=== PATIENT | female | born 1960 | race Two or more races ===

== ENCOUNTER 2018-11-05 15:28 | Emergency (ER) | payer MEDICAID ==
[~2018-11-05] VITALS: Ht 154.9 cm; Wt 89.8 kg
[~2018-11-05 15:28] MED LIST: CIPR-273 PO; HYDR-4683 PO; RANI300T3 PO; TAM04C PO
[2018-11-05 15:52] VITALS: BP 127/71
== END 2018-11-05 17:14 | disposition home or self-care (01) ==
LOC: ER 15:38
DX: N20.0 Calculus of kidney (principal); I10 Essential (primary) hypertension; Z87.11 Personal history of peptic ulcer disease; Z90.710 Acquired absence of both cervix and uterus; Z88.0 Allergy status to penicillin; Z88.6 Allergy status to analgesic agent
CPT/HCPCS: 74176

== ENCOUNTER 2018-12-08 14:16 | Emergency (ER) | payer MEDICAID ==
[~2018-12-08] VITALS: Ht 154.9 cm; Wt 86.2 kg
[2018-12-09 10:28] VITALS: BP 123/70
== END 2018-12-09 11:19 | disposition home or self-care (01) ==
LOC: ER 14:23
DX: N39.0 Urinary tract infection, site not specified (principal); R11.2 Nausea with vomiting, unspecified; M19.90 Unspecified osteoarthritis, unspecified site; I10 Essential (primary) hypertension; Z93.6 Other artificial openings of urinary tract status; Z88.5 Allergy status to narcotic agent; Z88.0 Allergy status to penicillin; Z79.899 Other long term (current) drug therapy
CPT/HCPCS: 74176; 81002; 93005

== ENCOUNTER 2019-06-27 06:01 | Emergency (ER) | payer MEDICAID ==
[~2019-06-27] VITALS: Ht 154.9 cm; Wt 86.2 kg
[~2019-06-27 06:01] MED LIST changes: -HYDR-4683 PO; +HYDR-4833 PO
[2019-06-27 06:27] LABS: Basophils # (auto) 0.1 uL; Basophils % (auto) 0.8 % (0.0-2.0); Eosinophils # (auto) 0.2 uL; Eosinophils % (auto) 2.8 % (0.0-7.0); Hematocrit 39.7 % (36.0-46.0); Hemoglobin 13.4 g/dL (12.2-16.2); Lymphocytes % (auto) 43.4 % (10.0-50.0); Mean Corpuscular Hemoglobin 31.8 pg (28.0-32.0); Mean Corpuscular Hgb Conc. 33.9 g/dL (32.0-36.0); Monocytes # (auto) 0.6 uL; Monocytes % (auto) 8.1 % (0.0-12.0); Neutrophils # (auto) 3.1 uL; Neutrophils % (auto) 44.9 % (37.0-80.0); Nucleated Red Blood Cells % 0.1 %; Platelet Count (auto) 312 10^3/uL (140-450); Red Blood Cells 4.22 10^6/uL (4.0-5.20); Red Cell Distribution Width 12.9 % (11.8-14.3); White Blood Cell 6.9 10^3/uL (4.4-10.8)
[2019-06-27 06:30] LABS: Urine Bacteria FEW /hpf (None Seen); Urine Blood Negative /uL (Negative); Urine Mucus FEW (None Seen); Urine Specific Gravity 1.015 (1.001-1.035); Urine WBC 85 /hpf (0 - 5)
[2019-06-27 06:47] LABS: Albumin 3.9 g/dL (3.4-5.0); BUN/Creatinine Ratio 15.2; Calcium 9.5 mg/dL (8.5-10.1); Potassium 4.1 mmol/L (3.5-5.1)
[2019-06-27 06:48] LABS: Bilirubin, Total 0.4 mg/dL (0.2-1.0); Total Protein 7.5 g/dL (6.4-8.2)
[2019-06-27] MEDS ORDERED: SODIUM CHLORIDE 0.9% 1,000 ML IV ONE ×2 (08:27)
[2019-06-27] MEDS ORDERED: KETOROLAC TROMETH 15 mg/ml 1ML VL IV ONE (08:30)
[2019-06-27] MEDS ORDERED: TAMSULOSIN HYDROCHLORIDE 0.4 MG CAP PO ONE (08:30)
[2019-06-27] MEDS ORDERED: KETOROLAC TROMETH 30 MG/ML 1ML VIAL IV ONE (09:00)
[2019-06-27] MEDS ORDERED: cefTRIAXone 1GM/50ML D5W 50 ML IV ONE (10:15)
[2019-06-27 12:29] VITALS: BP 131/101
[2019-07-30] MEDS ORDERED: LISI2.5T47 PO (21:04)
[2019-07-30] MEDS ORDERED: POTA-220 PO (21:04)
[2019-07-30] MEDS ORDERED: OMEP20TA PO (21:04)
== END 2019-06-27 13:47 | disposition home or self-care (01) ==
LOC: ER 06:01
DX: N39.0 Urinary tract infection, site not specified (principal); I10 Essential (primary) hypertension; Z88.0 Allergy status to penicillin; Z88.1 Allergy status to other antibiotic agents; Z88.5 Allergy status to narcotic agent; Z79.2 Long term (current) use of antibiotics; Z79.899 Other long term (current) drug therapy
CPT/HCPCS: 36415; 71045; 74176; 80053; 81001; 84484; 85025; 94761; 96361; 96365; 96375; 99284; J0696; J1885; J7030

== ENCOUNTER 2019-11-18 18:01 | Emergency (ER) | payer MEDICAID ==
[~2019-11-18] VITALS: Ht 165.1 cm; Wt 134.3 kg
[~2019-11-18 18:01] MED LIST changes: -CIPR-273 PO; -HYDR-4833 PO; +LISI2.5T47 PO; +OMEP20TA PO; +POTA-220 PO; -RANI300T3 PO; -TAM04C PO
[2019-11-18 18:53] LABS: Basophils # (auto) 0.1 uL; Basophils % (auto) 0.5 % (0.0-2.0); Eosinophils # (auto) 0.3 uL; Eosinophils % (auto) 2.6 % (0.0-7.0); Hematocrit 40.4 % (36.0-46.0); Hemoglobin 12.9 g/dL (12.2-16.2); Lymphocytes # (auto) 2.9 uL; Lymphocytes % (auto) 27.6 % (10.0-50.0); Mean Corpuscular Hemoglobin 31.9 pg (28.0-32.0); Mean Corpuscular Hgb Conc. 31.9 g/dL (32.0-36.0); Monocytes # (auto) 0.7 uL; Neutrophils # (auto) 6.4 uL; Neutrophils % (auto) 62.3 % (37.0-80.0); Platelet Count (auto) 250 10^3/uL (140-450); Red Blood Cells 4.04 10^6/uL (4.0-5.20); Red Cell Distribution Width 15.3 % (11.8-14.3); White Blood Cell 10.3 10^3/uL (4.4-10.8)
[2019-11-18 19:10] LABS: Albumin 3.4 g/dL (3.4-5.0); Anion Gap 9 (5-15); BUN/Creatinine Ratio 24.2; Blood Urea Nitrogen 31 mg/dL (7-18); Calcium 9.2 mg/dL (8.5-10.1); Carbon Dioxide 20 mmol/L (21-32); Chloride 108 mmol/L (98-107); GFR African American 55 mL/min; GFR Non-African American 45 mL/min; Glucose 108 mg/dL (74-106); Potassium 3.7 mmol/L (3.5-5.1); Sodium 137 mmol/L (136-145)
[2019-11-18 19:13] LABS: Aspartate Aminotransferase 21 U/L (15-37); Bilirubin, Total 0.3 mg/dL (0.2-1.0); Total Protein 6.9 g/dL (6.4-8.2)
[2019-11-18 19:22] LABS: Alanine Aminotransferase 43 U/L (13-56); Alkaline Phosphatase 74 U/L (45-117)
[2019-11-18 21:01] VITALS: BP 115/81
== END 2019-11-18 21:55 | disposition home or self-care (01) ==
LOC: EDUNIT# 18:01 → ER 18:01 → EDBD 18:01 → ER 21:55
DX: E86.0 Dehydration (principal); R55 Syncope and collapse; R42 Dizziness and giddiness; I10 Essential (primary) hypertension; Z90.710 Acquired absence of both cervix and uterus; Z87.442 Personal history of urinary calculi; Z87.11 Personal history of peptic ulcer disease
CPT/HCPCS: 36415; 70450; 80053; 83735; 83880; 84484; 85025; 93005

== ENCOUNTER 2020-08-10 10:44 | Inpatient (IN) | payer MEDICAID ==
[~2020-08-10] VITALS: Ht 154.9 cm; Wt 93.3 kg
[2020-08-10] MEDS ORDERED: PANTOPRAZOLE 40 MG/10 ML VIAL INJ IV STA (10:53)
[2020-08-10] MEDS ORDERED: SODIUM CHLORIDE 0.9% 500 ML IVB ONE (11:00)
[2020-08-10] MEDS ORDERED: MORPHINE SULFATE 4 MG/ML SYR/VIAL IV ONE (11:00)
[2020-08-10] MEDS ORDERED: ONDANSETRON HCL 4 MG/2 ML VIAL IV ONE (11:00)
[2020-08-10 11:19] LABS: Basophils # (auto) 0.1 10 ^3/uL (0-0.2); Basophils % (auto) 0.8 % (0.0-2.0); Eosinophils # (auto) 0.3 10 ^3/uL (0-0.8); Eosinophils % (auto) 3.2 % (0.0-7.0); Hematocrit 36.3 % (36.0-46.0); Hemoglobin 12.2 g/dL (12.2-16.2); Lymphocytes # (auto) 2.3 10 ^3/uL (0.4-5.4); Mean Corpuscular Hemoglobin 32.9 pg (28.0-32.0); Mean Corpuscular Hgb Conc. 33.6 g/dL (32.0-36.0); Monocytes # (auto) 0.8 10 ^3/uL (0-1.3); Monocytes % (auto) 8.4 % (0.0-12.0); Neutrophils # (auto) 5.5 10 ^3/uL (1.6-8.6); Neutrophils % (auto) 61.6 % (37.0-80.0); Nucleated Red Blood Cells % 0.1 %; Platelet Count (auto) 304 10^3/uL (140-450); Red Cell Distribution Width 14.2 % (11.8-14.3); White Blood Cell 8.9 10^3/uL (4.4-10.8)
[2020-08-10 11:36] LABS: Albumin 3.6 g/dL (3.4-5.0); Amylase 59 U/L (25-115); Anion Gap 5 (5-15); Blood Urea Nitrogen 13 mg/dL (7-18); Calcium 9.2 mg/dL (8.5-10.1); Carbon Dioxide 26 mmol/L (21-32); Chloride 106 mmol/L (98-107); Glucose 121 mg/dL (74-106); Lipase 227 U/L (73-393); Potassium 3.8 mmol/L (3.5-5.1); Sodium 137 mmol/L (136-145)
[2020-08-10 11:44] LABS: Alanine Aminotransferase 94 U/L (13-56); Alkaline Phosphatase 109 U/L (45-117); Aspartate Aminotransferase 55 U/L (15-37); BUN/Creatinine Ratio 12.1; Bilirubin, Total 0.7 mg/dL (0.2-1.0); GFR African American 67 mL/min; GFR Non-African American 55 mL/min; Total Protein 7.1 g/dL (6.4-8.2)
[2020-08-10] MEDS ORDERED: metroNIDAZOLE 500MG/100ML 100 ML IV ONE (12:00)
[2020-08-10] MEDS ORDERED: NITROGLYCERIN 0.4 MG SL TAB SL PRN (12:45)
[2020-08-10] MEDS ORDERED: MORPHINE SULF INJ 2 MG/ML SYRINGE 1ML IV PRN (12:45)
[2020-08-10] MEDS ORDERED: MORPHINE SULFATE 4 MG/ML SYR/VIAL IV PRN (12:45)
[2020-08-10] MEDS ORDERED: SODIUM CHLORIDE 0.9% 1,000 ML IV SCH (12:45)
[2020-08-10] MEDS ORDERED: LABETALOL HCL 5 MG/ML 4ML SYRINGE IV PRN (12:45)
[2020-08-10] MEDS: CLINDAMYCIN 300MG IV 50 ML IV SCH ×2 (13:43→21:22)
[2020-08-10 14:31] LABS: INR 0.97 (0.9-1.15); Partial Thromboplastin Time 26.4 sec (23.0-31.2)
[2020-08-10] MEDS ORDERED: POTA-180 PO (14:38)
[2020-08-10] MEDS ORDERED: FOLI1TAB6 PO (14:38)
[2020-08-10] MEDS ORDERED: MULT-927 PO (14:38)
[2020-08-10] MEDS ORDERED: ATOR20TA50 PO (14:38)
[2020-08-10] MEDS ORDERED: OMEP-260 PO (14:38)
[2020-08-10] MEDS ORDERED: LISI-648 PO (14:38)
[2020-08-10] MEDS ORDERED: HYDR-392 PO (14:38)
[2020-08-10] MEDS ORDERED: METH2.5T PO (14:38)
[2020-08-10] MEDS ORDERED: DICL1GEL50 TD (14:38)
[2020-08-10] MEDS: SODIUM CHLORIDE 0.9% 1,000 ML IV SCH (14:45)
[2020-08-10 14:48] LABS: Urine Bacteria NONE SEEN /hpf (None Seen); Urine Blood Negative /uL (Negative); Urine Specific Gravity 1.009 (1.001-1.035); Urine WBC 1 /hpf (0 - 5)
--- NOTE | 2020-08-10 15:00 | NUR ---
MS admit from ER ALEXANDRABRAEDEN Ross admitted to tele/MS after SBAR received. Patient oriented to Bryanna carvalho RN, unit, room, bed, and unit policies regarding patient care and visiting hours. Patient weighed by bedscale and encouraged to call if they need something. All questions and concerns addressed, patient verbalized understanding.
[2020-08-10 16:32] LABS: Hematocrit 33.8 % (36.0-46.0); Hemoglobin 11.5 g/dL (12.2-16.2)
[2020-08-10 17:00] VITALS: BP 123/71
[2020-08-10] MEDS: ONDANSETRON HCL 4 MG/2 ML VIAL IV PRN (17:37)
[2020-08-10] MEDS ORDERED: ENALAPRILAT 1.25 MG/ML-1ML VIAL IV SCH (18:00)
[2020-08-10] MEDS: ENALAPRILAT 1.25 MG/ML-1ML VIAL IV SCH ×2 (18:57→23:28)
--- NOTE | 2020-08-10 18:58 | NUR ---
covid in-house swab collected. patint tolerated well. Will be sent to lab
--- NOTE | 2020-08-10 20:00 | NUR ---
ASSUMED CARE, PT. AWAKE, NO C/O PAIN, NO SOB
[2020-08-10] MEDS ORDERED: LORazepam 2MG/ML-1ML VIAL IV PRN (21:00)
[2020-08-10] MEDS: PANTOPRAZOLE 40 MG/10 ML VIAL INJ IV SCH (21:22)
[2020-08-10 22:00] VITALS: BP 147/94
--- NOTE | 2020-08-10 22:00 | NUR ---
PT. T- 100.8, BLANKET REMOVED, COOLING MEASURES APPLIED, TO KEEP MONITOR.
--- NOTE | 2020-08-10 23:29 | NUR ---
PT. T- 100.0, CONTINOUS COOLING MEASURES, TO KEEP MONITOR.
[2020-08-11] VITALS (7 sets, daily range): BP systolic 121–148; BP diastolic 65–92
[2020-08-11] MEDS: SODIUM CHLORIDE 0.9% 1,000 ML IV SCH ×3 (00:45→20:45)
[2020-08-11] MEDS: CLINDAMYCIN 300MG IV 50 ML IV SCH ×2 (05:11→14:27)
[2020-08-11] MEDS: ENALAPRILAT 1.25 MG/ML-1ML VIAL IV SCH ×3 (05:15→18:16)
--- NOTE | 2020-08-11 07:33 | NUR ---
RECEIVED PATIENT AWAKE, ALERT AND ORIENTED X4, PATIENT IS GRIMACING TO 8/10 GENERALIZED PAIN, DENIES SOB. WILL MEDICATED PER eMAR. PLAN OF CARE DISCUSSED, ENCOURAGED TO REMAIN NPO FOR EGD PROCEDURE. BED IN LOW AND LOCKED POSITION, CALL LIGHT AND PHONE WITHIN REACH WITH SIDE RAILS X2 UP. WILL CONTINUE TO MONITOR Q1HR AND PRN.
[2020-08-11] MEDS ORDERED: PANTOPRAZOLE 40 MG/10 ML VIAL INJ IV SCH (10:00)
[2020-08-11] MEDS ORDERED: ENOXAPARIN SOD 40 MG/0.4 ML SYRINGE SC SCH (10:00)
[2020-08-11] MEDS ORDERED: MIDAZOLAM HCL 5 MG/ML-1ML VIAL ONE (10:15)
[2020-08-11] MEDS ORDERED: SODIUM CHLORIDE LOCK 10 ML ONE (10:15)
[2020-08-11] MEDS ORDERED: diphenhdrAMINE HCL 50 MG/1 ML VL ONE (10:15)
[2020-08-11] MEDS ORDERED: NALOXONE HCL 0.4 MG/ML VIAL ONE (10:15)
[2020-08-11] MEDS ORDERED: LIDOCAINE VISCOUS 2% 15ML UD ONE (10:15)
[2020-08-11] MEDS ORDERED: fentaNYL CITRATE 100 MCG/2 ML VL ONE (10:16)
--- NOTE | 2020-08-11 10:27 | NUR ---
PATIENT CURRENTLY OFF UNIT FOR EGD. WILL RESUME SCHEDULED MEDS UPON RETURN TO ROOM.
[2020-08-11] MEDS: PANTOPRAZOLE 40 MG/10 ML VIAL INJ IV SCH ×2 (12:02→22:38)
[2020-08-11] MEDS: ONDANSETRON HCL 4 MG/2 ML VIAL IV PRN (14:21)
[2020-08-11] MEDS: ACETAMINOPHEN 325 MG TAB PO PRN ×2 (14:22→23:44)
--- NOTE | 2020-08-11 14:56 | NUR ---
DR. CINTRON AT BEDSIDE, DISCUSSED PLAN OF CARE WITH PATIENT. MD WILL PUT IN NEW ORDERS. PATIENT TO BE ADVANCED TO CLEAR LIQUID PER MD.
--- NOTE | 2020-08-12 03:36 | NUR ---
pt resting with eyes closed and resp even unlabored. will continue to monitor.
[2020-08-12] MEDS: ENALAPRILAT 1.25 MG/ML-1ML VIAL IV SCH ×4 (04:47→17:59)
[2020-08-12 05:31] VITALS: BP 116/74
[2020-08-12] MEDS: SODIUM CHLORIDE 0.9% 1,000 ML IV SCH ×2 (06:45→17:11)
[2020-08-12 06:47] LABS: Basophils # (auto) 0 10 ^3/uL (0-0.2); Basophils % (auto) 0.5 % (0.0-2.0); Eosinophils # (auto) 0.2 10 ^3/uL (0-0.8); Eosinophils % (auto) 3.6 % (0.0-7.0); Hematocrit 35.2 % (36.0-46.0); Hemoglobin 12.1 g/dL (12.2-16.2); Lymphocytes # (auto) 1.5 10 ^3/uL (0.4-5.4); Lymphocytes % (auto) 22.6 % (10.0-50.0); Mean Corpuscular Hemoglobin 33.6 pg (28.0-32.0); Mean Corpuscular Hgb Conc. 34.4 g/dL (32.0-36.0); Mean Corpuscular Volume 97.8 fL (80.0-100.0); Monocytes # (auto) 0.9 10 ^3/uL (0-1.3); Neutrophils % (auto) 60.3 % (37.0-80.0); Nucleated Red Blood Cells % 0.1 %; Platelet Count (auto) 266 10^3/uL (140-450); Red Blood Cells 3.61 10^6/uL (4.0-5.20); Red Cell Distribution Width 14.1 % (11.8-14.3); White Blood Cell 6.7 10^3/uL (4.4-10.8)
[2020-08-12 07:13] LABS: Albumin 3.4 g/dL (3.4-5.0); Potassium 4.3 mmol/L (3.5-5.1)
[2020-08-12 07:17] LABS: BUN/Creatinine Ratio 8.9; Bilirubin, Total 0.7 mg/dL (0.2-1.0); Total Protein 6.7 g/dL (6.4-8.2)
--- NOTE | 2020-08-12 07:32 | NUR ---
PT AWAKE ALERT ORIENTED;WANTING TO SEE DR HO. CONSULT RE-CALLED BY INCLUSION SPECIAL EDUCATION TEACHER.
[2020-08-12 08:00] VITALS: BP 148/71
[2020-08-12 09:00] VITALS: BP 148/71
[2020-08-12] MEDS: levoFLOXacin 500MG 100 ML IV SCH (10:20)
[2020-08-12] MEDS: PANTOPRAZOLE 40 MG/10 ML VIAL INJ IV SCH ×2 (10:20→21:58)
[2020-08-12] MEDS: MORPHINE SULF INJ 2 MG/ML SYRINGE 1ML IV PRN (10:21)
--- NOTE | 2020-08-12 11:08 | NUR ---
Nutrition Assessment Notes please see attached link for complete assessment Est. Needs ABW [id number] kcal (17-20 kcal/kgABW), 70-77 gms pro (1.0-1.1 gms/kgABW). Will continue to monitor pertinent labs and reassess nutrient need prn Addendum: 08/12/20 at [address] Amended: Links added.
[2020-08-12 13:00] VITALS: BP 135/68
[2020-08-12 16:51] VITALS: BP 131/67
--- NOTE | 2020-08-12 19:30 | NUR ---
0pening note Assumed care of patient, patient is alert and orientated x4. No sob or distress noted. POC reviewed, questions answered at this time. Bed is locked in lowest position, side rails up x2. Call light within reach, will continue to monitor Q1HR and PRN.
[2020-08-12 21:00] VITALS: BP 132/75
[2020-08-13] MEDS: ENALAPRILAT 1.25 MG/ML-1ML VIAL IV SCH ×5 (00:13→23:21)
[2020-08-13] MEDS: ACETAMINOPHEN 325 MG TAB PO PRN ×2 (00:14→22:00)
[2020-08-13] MEDS: SODIUM CHLORIDE 0.9% 1,000 ML IV SCH ×3 (03:04→23:20)
[2020-08-13 05:00] VITALS: BP 140/58
[2020-08-13 06:00] LABS: Basophils # (auto) 0 10 ^3/uL (0-0.2); Basophils % (auto) 0.6 % (0.0-2.0); Eosinophils # (auto) 0.3 10 ^3/uL (0-0.8); Eosinophils % (auto) 4.4 % (0.0-7.0); Hematocrit 35.7 % (36.0-46.0); Hemoglobin 12.5 g/dL (12.2-16.2); Lymphocytes # (auto) 1.7 10 ^3/uL (0.4-5.4); Lymphocytes % (auto) 26.2 % (10.0-50.0); Mean Corpuscular Hgb Conc. 34.9 g/dL (32.0-36.0); Mean Corpuscular Volume 97.5 fL (80.0-100.0); Monocytes # (auto) 0.9 10 ^3/uL (0-1.3); Monocytes % (auto) 13.2 % (0.0-12.0); Neutrophils # (auto) 3.6 10 ^3/uL (1.6-8.6); Neutrophils % (auto) 55.6 % (37.0-80.0); Nucleated Red Blood Cells % 0.1 %; Platelet Count (auto) 298 10^3/uL (140-450); Red Blood Cells 3.66 10^6/uL (4.0-5.20); Red Cell Distribution Width 14.2 % (11.8-14.3); White Blood Cell 6.5 10^3/uL (4.4-10.8)
[2020-08-13 06:24] LABS: Albumin 3.3 g/dL (3.4-5.0); Calcium 9.1 mg/dL (8.5-10.1); Potassium 3.7 mmol/L (3.5-5.1)
[2020-08-13 06:29] LABS: BUN/Creatinine Ratio 7.9; Bilirubin, Total 0.6 mg/dL (0.2-1.0); Total Protein 6.7 g/dL (6.4-8.2)
--- NOTE | 2020-08-13 07:26 | NUR ---
Closing note Endorsed care to day shift RN. No sob or distress noted.
--- NOTE | 2020-08-13 08:10 | NUR ---
PT OFF UNIT FOR PROCEDURE
--- NOTE | 2020-08-13 08:45 | NUR ---
ROUNDING MD CINTRON UPDATED ON PATIENT STATUS. NEW ORDERS FOR TELEMETRY MONITORING
[2020-08-13 09:15] VITALS: BP 105/78
[2020-08-13] MEDS ORDERED: MORPHINE SULF INJ 2 MG/ML SYRINGE 1ML IV ONE ×2 (09:15→10:30)
[2020-08-13] MEDS: PANTOPRAZOLE 40 MG/10 ML VIAL INJ IV SCH ×2 (10:00→22:01)
--- NOTE | 2020-08-13 10:16 | NUR ---
PT ARRIVAL BACK TO UNIT
[2020-08-13] MEDS: levoFLOXacin 500MG 100 ML IV SCH (10:23)
--- NOTE | 2020-08-13 11:09 | NUR ---
PT PLACED ON TELEMETRY
--- NOTE | 2020-08-13 12:05 | NUR ---
ASSUMED CARE ASSUMED CARE OF PATIENT. RECEIVED REPORT FROM SAROJ PABLO. WILL CONTINUE TO MONITOR
[2020-08-13] MEDS: PROMETHAZINE HCL 25 MG/ML 1ML IV PRN (12:21)
[2020-08-13 13:00] VITALS: BP 127/82
--- NOTE | 2020-08-13 19:35 | NUR ---
Opening Shift Note Assumed care of patient, awake and alert. No S/S of distress/SOB or pain. Instructed on POC and to call for assist PRN, will continue to monitor for changes Q1hr and PRN.
--- NOTE | 2020-08-13 21:00 | NUR ---
IV removal/IV reinsertion IV on the left forearm DC'd with clean sterile technique, catheter fully intact. Pressure dressing applied to site. Patient tolerated well. IV access obtained, via clean sterile technique by inserting 20 gauge catheter at the right forearm after first attempt. IV secured properly. No trauma to site. Patient tolerated well.
[2020-08-13 23:10] VITALS: BP 123/93
[2020-08-14] MEDS: ENALAPRILAT 1.25 MG/ML-1ML VIAL IV SCH ×4 (05:15→23:47)
[2020-08-14 05:16] VITALS: BP 139/88
[2020-08-14 07:08] LABS: Alanine Aminotransferase 88 U/L (13-56); Albumin 3.3 g/dL (3.4-5.0); Anion Gap 9 (5-15); Aspartate Aminotransferase 38 U/L (15-37); BUN/Creatinine Ratio 8.3; Blood Urea Nitrogen 8 mg/dL (7-18); Calcium 8.9 mg/dL (8.5-10.1); Carbon Dioxide 24 mmol/L (21-32); Chloride 107 mmol/L (98-107); GFR African American 76 mL/min; GFR Non-African American 63 mL/min; Glucose 117 mg/dL (74-106); Potassium 3.9 mmol/L (3.5-5.1); Sodium 140 mmol/L (136-145)
[2020-08-14 07:12] LABS: Alkaline Phosphatase 92 U/L (45-117); Bilirubin, Total 0.5 mg/dL (0.2-1.0); Total Protein 6.6 g/dL (6.4-8.2)
--- NOTE | 2020-08-14 07:30 | NUR ---
Opening Shift Note Assumed care of patient, awake, alert, and oriented. No S/S of distress/SOB or pain. Bed in lowest/locked position, bed rails up x2, call light within reach. Instructed on POC and to call for assist PRN. Will continue to monitor for changes Q1hr and PRN.
[2020-08-14 09:00] VITALS: BP 147/69
[2020-08-14] MEDS: PANTOPRAZOLE 40 MG/10 ML VIAL INJ IV SCH ×2 (09:17→20:32)
[2020-08-14] MEDS: levoFLOXacin 500MG 100 ML IV SCH (09:17)
[2020-08-14] MEDS: SODIUM CHLORIDE 0.9% 1,000 ML IV SCH ×2 (09:18→18:01)
[2020-08-14] MEDS: MORPHINE SULF INJ 2 MG/ML SYRINGE 1ML IV PRN ×3 (10:51→23:47)
[2020-08-14] MEDS ORDERED: GLYCOPYRROLATE 0.2 MG/ML 1ML VIAL ONE (10:55)
[2020-08-14] MEDS ORDERED: NEOSTIGMINE 1 MG/ML INJ (10mg/10ML VIAL) ONE (10:55)
[2020-08-14] MEDS ORDERED: MIDAZOLAM HCL 1MG/1ML-2 ML VIAL ONE (10:55)
[2020-08-14] MEDS ORDERED: ROCURONIUM 10MG/ML 10ML VIAL IV ONE (10:55)
[2020-08-14] MEDS ORDERED: PROPOFOL 10 MG/ML 20 ML IV ONE (10:55)
[2020-08-14] MEDS ORDERED: SODIUM CHLORIDE LOCK 10 ML ONE (10:55)
[2020-08-14] MEDS ORDERED: ONDANSETRON HCL 4 MG/2 ML VIAL ONE (10:55)
[2020-08-14] MEDS ORDERED: fentaNYL CITRATE 100 MCG/2 ML VL ONE (10:55)
[2020-08-14] MEDS ORDERED: MEPERIDINE HCL (25 MG/ML) 1ML VIAL ONE (10:55)
[2020-08-14] MEDS ORDERED: SUCCINYLCHOLINE CHLORIDE 20 MG/ML 10ML VIAL IV ONE (11:19)
--- NOTE | 2020-08-14 11:24 | NUR ---
Nutrition Followup Notes Pt wt is 93.1 kg Pt was awake when rounded this morning. Pt reports she still has abdominal pain of 8/10. Pt is with a Clear Liquid diet, appetite is good aeb ave 80% PO intake over 5 meals per RN doc. Est. Energy Needs, ABW [id number] kcal (17-20 kcal/kgABW), Est Protein: 70-77 gms (1.0-1.1 gms/kgABW). Will continue to monitor pertinent labs and reassess nutrient need prn LABS: GLUC 117 H, AST 38 H, ALT 88 H, ALB 3.3 L GI: Pt had 1 BM on 08/13 per RN doc BS: 23 low risk. Refer to wound assessment report for full details. PES: 1) Altered nutrition related lab values r.t current chronic medical condition aeb hyperglycemia 2) Decreased nutrient needs r/t adiposity aeb pt`s high BMI of 39.3 kgm2 Malnutrition related to morbid Weight 200% of ideal wt Malnutrition related to morbid obesity Yes Comments 1) Advance diet as medically feasible 2) Refer to CDE on DC 3) Continue current plan of care
[2020-08-14] MEDS ORDERED: MORPHINE SULFATE 4 MG/ML SYR/VIAL IV PRN (11:45)
[2020-08-14] MEDS ORDERED: METOCLOPRAMIDE HCL 5MG/ml INJ 2ml VIAL IV PRN (11:45)
[2020-08-14] MEDS ORDERED: HYDROmorphone HCL 2 MG/ML VL IV PRN (11:45)
--- NOTE | 2020-08-14 11:50 | NUR ---
OFF UNIT PATIENT TRANSPORTED TO O.R. NO S/S OF DISTRESS, SOB, PAIN AT DEPARTURE
[2020-08-14] MEDS ORDERED: levoFLOXacin 500MG 100 ML IV ONE (12:08)
[2020-08-14] MEDS ORDERED: KETOROLAC TROMETH 60MG/2ML VIAL ONE (12:44)
--- NOTE | 2020-08-14 13:48 | NUR ---
ON UNIT PATIENT RETURNED FROM O.R. 3 INCISIONS TO ABDOMEN, C/D/I, ABDOMINAL BINDER IN PLACE. BED ALARM ON FOR SAFETY, INSTRUCTED PATIENT TO USE CALL LIGHT WHEN SHE NEEDS TO GET UP. PATIENT VERBALIZED UNDERSTANDING. NO C/O SOB, PAIN, DISCOMFORT AT THIS TIME. WILL CONTINUE TO MONITOR
[2020-08-14 16:45] VITALS: BP 114/67
[2020-08-14] MEDS: ACETAMINOPHEN 325 MG TAB PO PRN (17:29)
[2020-08-14 21:46] VITALS: BP 114/61
[2020-08-14] MEDS ORDERED: SODIUM CHLORIDE 0.9% 500 ML IV ONE (22:30)
[2020-08-14] MEDS ORDERED: IOHEXOL 350 MG/ML 100ML IJ ONE (23:07)
[2020-08-15] VITALS (17 sets, daily range): BP systolic 74–129; BP diastolic 36–63
[2020-08-15] MEDS: MORPHINE SULF INJ 2 MG/ML SYRINGE 1ML IV PRN ×4 (03:43→22:23)
[2020-08-15] MEDS: ACETAMINOPHEN 325 MG TAB PO PRN ×2 (04:34→06:37)
[2020-08-15] MEDS: SODIUM CHLORIDE 0.9% 1,000 ML IV SCH ×3 (04:57→23:44)
--- NOTE | 2020-08-15 05:03 | NUR ---
NN LATE ENTRY 08/14/[address] CINTRON REGARDING INCREASE IN PATIENT'S HR. PATIENT IS CURRENTLY SUSTAINING HR IN HIGH 120S, PATIENT IS SINUS TACHYCARDIA AND ASYMPTOMATIC. NEW ORDERS RECEIVED. SPOKE WITH PAMPHLET DISTRIBUTOR REGARDING ORDER, PER TECH PATIENT WILL BE TAKEN DOWN SOON POSSIBLE. EKG OBTAINED.
--- NOTE | 2020-08-15 05:07 | NUR ---
DR. CINTRON PAGED REGARDING TEMPERATURE.
[2020-08-15] MEDS ORDERED: VANCOMYCIN PER PHARMACY 0 MG IV SCH (05:30)
[2020-08-15] MEDS: ENALAPRILAT 1.25 MG/ML-1ML VIAL IV SCH ×4 (06:26→23:30)
[2020-08-15] MEDS ORDERED: VANCOMYCIN 1,500 MG in D5W 5% 250 ML IV ONE (06:30)
[2020-08-15] MEDS ORDERED: VANCOMYCIN 1GM/250ML 250 ML IV ONE ×2 (06:30→07:00)
[2020-08-15 07:10] LABS: Basophils # (auto) 0 10 ^3/uL (0-0.2); Basophils % (auto) 0.3 % (0.0-2.0); Eosinophils # (auto) 0.1 10 ^3/uL (0-0.8); Eosinophils % (auto) 0.4 % (0.0-7.0); Hematocrit 36.3 % (36.0-46.0); Hemoglobin 12.1 g/dL (12.2-16.2); Lymphocytes % (auto) 13.1 % (10.0-50.0); Mean Corpuscular Hemoglobin 32.6 pg (28.0-32.0); Mean Corpuscular Hgb Conc. 33.3 g/dL (32.0-36.0); Mean Corpuscular Volume 97.8 fL (80.0-100.0); Monocytes # (auto) 0.8 10 ^3/uL (0-1.3); Monocytes % (auto) 5.2 % (0.0-12.0); Neutrophils # (auto) 12.5 10 ^3/uL (1.6-8.6); Platelet Count (auto) 284 10^3/uL (140-450); Red Blood Cells 3.72 10^6/uL (4.0-5.20); Red Cell Distribution Width 14.2 % (11.8-14.3); White Blood Cell 15.4 10^3/uL (4.4-10.8)
[2020-08-15 07:23] LABS: Chloride 106 mmol/L (98-107); Potassium 3.6 mmol/L (3.5-5.1); Sodium 135 mmol/L (136-145)
[2020-08-15 07:49] LABS: Alanine Aminotransferase 75 U/L (13-56); Alkaline Phosphatase 83 U/L (45-117); Anion Gap 9 (5-15); Aspartate Aminotransferase 57 U/L (15-37); BUN/Creatinine Ratio 6.4; Bilirubin, Total 0.9 mg/dL (0.2-1.0); Blood Urea Nitrogen 10 mg/dL (7-18); Calcium 8.5 mg/dL (8.5-10.1); Carbon Dioxide 20 mmol/L (21-32); GFR African American 43 mL/min; GFR Non-African American 36 mL/min; Glucose 109 mg/dL (74-106)
--- NOTE | 2020-08-15 08:00 | NUR ---
Opening Shift Note Assumed care of patient, awake, alert and oriented X4. No S/S of distress/SOB, pain or discomfort. O2 @ 2 LPM via nasal cannula with sats at 96%. IV to right forearm, 20 gauge, patent and infusing Vancomycin. Abdominal incisions X3, all dressings clean, dry and intact, abdominal binder in place. Absent bowel sounds, patient remains NPO. Bilateral SCD's in place. Patient asleep, but awakens to voice. Bed locked, in lowest position, call light within reach, will continue to monitor for changes Q1hr and PRN.
[2020-08-15] MEDS ORDERED: IOHEXOL 350 MG/ML 100ML IJ ONE (08:30)
--- NOTE | 2020-08-15 08:45 | NUR ---
Informed by CHRIS Escobar that patient is complaining of "numbness and pain" to bilateral hands. Upon entering room patient lying supine with both arms above head. Assessed circulation to both arms, WNL. Stopped Vancomycin infusing to right forearm. V/S 74/43 P 107 bpm, R 17 bpm, O2 sats 94% on 2 LPM via nasal cannula. Call placed to Dr Sharan Wall, awaiting return call. Will stay at patient's bedside awaiting return call.
--- NOTE | 2020-08-15 09:00 | NUR ---
Return call received from Dr Sharan Wall. Informed of reason for call, new orders received and followed through. Patient updated on plan if care, verbalized understanding. Bolus of 500 ml started per order to right hand, 20 gauge. Will continue to monitor.
--- NOTE | 2020-08-15 09:10 | NUR ---
IV INFILTRATION IV to left hand began to swell with tenderness during IV bolus with 0.9% NS. IV discontinued with clean technique, catheter intact and dressing applied. Patient complaining of tenderness with redness to right forearm where previous Vancomycin was infusing. Discontinued IV to right forearm with clean technique, catheter intact, dressing and cool compress applied. New IV started to left antecubital, 20 gauge, by SAROJ Cates. 0.9% NS bolus of 500 ml started to right antecubital site. V/S 84/45 P 105 bpm, RR 18 bpm, O2 sats @ 96% on 2 LPM via nasal cannula. Patient verbalized bilateral hand numbness and pain has subsided. Will continue to monitor.
--- NOTE | 2020-08-15 09:30 | NUR ---
V/S B/P 86/48 P 108 BPM, RR 18, T 98.9 F oral, O2 sats 94% on 2 LPM via nasal cannula. IV 0.9% NS bolus of 500 ml continue to infuse to left antecubital. Patient verbalizes feeling "foggy headed". Informed to remain in bed, verbalized understanding.
[2020-08-15] MEDS ORDERED: SODIUM CHLORIDE 0.9% 500 ML IV ONE ×2 (10:00→13:15)
--- NOTE | 2020-08-15 10:00 | NUR ---
V/S B/P 92/54 P 102 bpm, RR 20, O2 sats @ 94% on 2 LPM via nasal cannula. T 98.8F orally. IV 0.9% NS bolus infusing to left antecubital.
--- NOTE | 2020-08-15 10:30 | NUR ---
IV bolus competed. 0.9% NS @ 100 ml/hr started to left antecubital per orders. V/S B/P 94/56 P 104 bpm, RR 21 bpm, O2 sats @ 94% on 2 LPM via nasal cannula, Temp 98.7 F orally. Patient complains of abdominal tenderness, verbalizes "this is tolerable".
--- NOTE | 2020-08-15 11:30 | NUR ---
V/S B/P 71/43 P 108 bpm RR 20 bpm O2 sats @ 96% on 2 LPM via nasal cannula. Patient complaining of numbness and pain to bilateral hands. Informed Dr Sharan Wall, new orders received to transfer patient to [facility] and place on a Levophed GTT. Informed Yue RN, charge nurse.
--- NOTE | 2020-08-15 11:45 | NUR ---
V/S B/P 76/42 P 101 BPM RR 18 bpm O2 sats @ 94% on 2 LPM via nasal cannula Temp 98.9 F orally. Informed by SAROJ Cates, patient to be transferred to ICU bed 109. Will call report.
--- NOTE | 2020-08-15 12:45 | NUR ---
RECEIVED FROM FLOOR FOR MONITORING FOR HYPOTENSION. A/O X4. C/O MILD NAUSEA, NO BOWEL SOUNDS, S/P LAPAROSCOPIC CHOLECYSTECTOMY. CURRENTLY ON 2 L NC, SR NO ECTOPY, AFEBRILE. ORIENTED TO ICU ENVIRONMENT, PT RECEIVED AN IVFB PRIOR TO BEING TRANSFERRED TO ICU BP STABLE LEVOPHED GTT MIXED JUST IN CASE IF PT HAS TO BE STARTED ON LEVOPHED GTT.
--- NOTE | 2020-08-15 12:50 | NUR ---
Verbal report give to SAROJ Brasher, ICU.
--- NOTE | 2020-08-15 13:05 | NUR ---
ICU TRANSFER Patient transferred to ICU, bed 109 via bed, on portable O2 @ 2 LPM, with all personal belongings. Care assumed by SAROJ Brasher, ICU.
[2020-08-15] MEDS ORDERED: NOREPINEPHRINE 8 MG/250ML KIT 250 ML IV SCH (13:15)
[2020-08-15] MEDS: PROMETHAZINE HCL 25 MG/ML 1ML IV PRN (13:19)
--- NOTE | 2020-08-15 13:38 | NUR ---
DAUGHTER Call placed to geovanna Duarte, updated on plan of care, informed patient transferred to ICU bed 109, verbalized understanding. All questions and concerned answered at this time.
--- NOTE | 2020-08-15 15:45 | NUR ---
CT RN NEIDA CALL STATING THAT PT HAS A STAT CT ANGIO SINCE THIS AM AND THAT PT HAS NOT BEEN STABLE ENOUGH TO GO TO CT SCAN. NOT CT RN IS UNAVAILABLE TO TAKE PT TO CT SCAN SINCE RN JUST GOT OUT OF AN OR CASE AND IS GETTING READY TO GO HOME. I'LL NOTIFY ICU PLANT SPRAYER PAUL TO FACILITATE COVERAGE FOR PT OR TO TAKE PT TO CT SCAN.
--- NOTE | 2020-08-15 16:15 | NUR ---
TAKEN TO CT SCAN VIA BED WITH CARDIAC MONITORING AND O2 BY SAROJ JETT AND CT TRANSPORTER WITH ACLS TRANSPORT MEDICATION BOX.
--- NOTE | 2020-08-15 16:30 | NUR ---
PT BROUGHT BACK FROM CT SCAN. PT HAD A CTA OF CHEST.
[2020-08-15] MEDS: PANTOPRAZOLE 40 MG/10 ML VIAL INJ IV SCH ×2 (16:55→21:38)
[2020-08-15] MEDS: levoFLOXacin 500MG 100 ML IV SCH (16:55)
--- NOTE | 2020-08-15 17:25 | NUR ---
JACKSON INSERTED PT HAS NOT VOIDED ALL DAY. I HAD CALLED RN DARYL FROM FLOOR TO CLARIFY SOME ORDERS AND SHE TOLD ME THERE WAS AN ORDER FOR A JACKSON AND THAT PT HAD NOT VOIDED ALL DAY. PT HAD 200 ML OF DARK JOHN URINE RETURN UPON INSERTION OF JACKSON CATHETER.
--- NOTE | 2020-08-15 18:31 | NUR ---
I CALLED PT'S DAUGHTER YAYO AND I UPDATED HER ON PT'S CONDITION. CTA FINDINGS, CURRENT VITAL SIGNS, POC FOR TOMORROW IF EVERYTHING GOES WELL. PT'S DAUGHTER VERBALIZED UNDERSTANDING OF POC.
--- NOTE | 2020-08-15 19:00 | NUR ---
REPORT GIVEN TO ONCOMING SAROJ LAZO.
--- NOTE | 2020-08-15 19:24 | NUR ---
PT C/O 10 INCISIONAL PAIN MEDICATED WITH ONE MG OF MS IVP. PT WAS PREVIOUSLY SLEEPING AT 6: 30 WHEN PAIN MED WAS DUE.
--- NOTE | 2020-08-15 20:00 | NUR ---
TEMP 100.6 BLANKETS REMOVED. COLD COMPRESS APPLIED. PATIENT IS NPO SO TYLENOL IS NOT GIVEN.
--- NOTE | 2020-08-15 23:45 | NUR ---
HELD VASOTEC NOW BP IS 110/53MMHG. PATIENT IS IN ICU DUE TO HYPOTENSION AND LEVOPHED HAS NOT STARTED. BP WAS BELOW 100 AT 2000 AND 2230. MIDNIGHT VASO MILLY DOSE HELD.
[2020-08-16] VITALS (27 sets, daily range): BP systolic 103–130; BP diastolic 51–77
[2020-08-16] MEDS: MORPHINE SULF INJ 2 MG/ML SYRINGE 1ML IV PRN (01:26)
--- NOTE | 2020-08-16 03:30 | NUR ---
OOB TO CHAIR OOB DONE WITH ASSISTANCE. MADE PATIENT SAT ON THE CHAIR. VITAL SIGNS ARE STABLE.
[2020-08-16 04:08] LABS: Albumin 2.7 g/dL (3.4-5.0); Calcium 8.3 mg/dL (8.5-10.1)
[2020-08-16 04:12] LABS: BUN/Creatinine Ratio 6.5; Bilirubin, Total 1.2 mg/dL (0.2-1.0); Total Protein 5.8 g/dL (6.4-8.2)
--- NOTE | 2020-08-16 04:30 | NUR ---
AMBULATION PATIENT AMBULATED AROUND THE NURSES STATION WITH WALKER AND STOCKROOM ATTENDANT X 1. REFUSED TO WALK AGAIN. VITAL SIGNS ARE STABLE.
[2020-08-16] MEDS: PROMETHAZINE HCL 25 MG/ML 1ML IV PRN ×2 (05:01→12:45)
--- NOTE | 2020-08-16 06:00 | NUR ---
ASSESSMENT PATIENT IS SLEEPING. NO DISTRESS NOTED.
[2020-08-16] MEDS: ENALAPRILAT 1.25 MG/ML-1ML VIAL IV SCH ×4 (06:18→23:21)
[2020-08-16] MEDS ORDERED: VANCOMYCIN 1GM/250ML 250 ML IV SCH (07:00)
--- NOTE | 2020-08-16 07:15 | NUR ---
START OF SHIFT RECEIVED PATIENT AWAKE AND COOPERATIVE, USED INCENTIVE SPIROMETER, CAN ONLY GET 500, ENCOURAGED TO TAKE DEEP BREATHS, POSITIONED TO LEFT SIDE ND LOTION TO BACK, ENCOURAGED TO CONTINUE TAKING DEEP BREATHS AND COUGHING EXERCISE, PATIENT REMOVED NASAL CANNULA, MAKES HER NOSE ITCH, SATURATING GOOD ON ROOM AIR. IV'S INFUSING WELL.
--- NOTE | 2020-08-16 08:45 | NUR ---
RN NOTES PATIENT ASSISTED OUT OF BED TO SIT NI THE CHAIR. USED INCENTIVE SPIROMETER , ENCOURAGED TO TAKE DEEP BREATHS AND COUGH.
--- NOTE | 2020-08-16 09:00 | NUR ---
RN NOTES PATIENT SEEN BY DR. CINTRON AND ENCOURAGED TO USE SPIROMETER, AND OK TO TRANSFER PATIENT TO TELEMETRY.
[2020-08-16] MEDS: PANTOPRAZOLE 40 MG/10 ML VIAL INJ IV SCH ×2 (09:26→22:22)
[2020-08-16] MEDS: levoFLOXacin 500MG 100 ML IV SCH (09:27)
[2020-08-16] MEDS: SODIUM CHLORIDE 0.9% 1,000 ML IV SCH ×2 (10:56→22:21)
--- NOTE | 2020-08-16 14:00 | NUR ---
RN NOTES PATIENT HAD LIQUID BM IN BED, CLEANSED AND CATHETER CARE DONE, ASSISTED UP IN BED AND SAT IN THE CHAIR FOR 15 MINUTES, LINENS CHANGED AND ASSISTED BACK TO BED.
--- NOTE | 2020-08-16 14:22 | NUR ---
Nutrition Followup Notes Pt wt is 95.4kg Pt was sleeping with no family at bedside at time of rounds. Pt is s/p lap amanda per MD note. Pt diet is advanced to clear liquids today with no intake, pt was NPO 08/15. Will continue to monitor po diet advance, intake and tolerance of diet Est. Energy Needs, ABW [id number] kcal (17-20 kcal/kgABW), Est Protein: 70-77 gms (1.0-1.1 gms/kgABW). Will continue to monitor pertinent labs and reassess nutrient need prn LABS: Creat 1.69H, Ca 8.3L, Alb 2.7L GI: Pt had 2 BM on 08/15 per RN doc BS: 18 mod risk. Refer to wound assessment report for full details. PES: 1) Altered nutrition related lab values r.t current chronic medical condition aeb hyperglycemia 2) Decreased nutrient needs r/t adiposity aeb pt`s high BMI of 39.3 kgm2 Comments 1) Advance diet as medically feasible 2) Refer to CDE on DC 3) Continue current plan of care f/u 2-3 days
--- NOTE | 2020-08-16 15:30 | NUR ---
RN NOTES PATIENT HAS TRANSFER ORDERS TO TELEMETRY, AWAITING BED ASSIGNMENT, NURSING OPTICAL MECHANIC AWARE PATIENT HAS TRANSFER ORDER. SLEEPING AT INTERVALS, COUGHING UP LOOSE MUCUS ON TISSUE. TOLERATED APPLE JUICE.
--- NOTE | 2020-08-16 16:50 | NUR ---
TRANSFER NOTE PATIENT BED ASSIGNMENT TO ROOM 290-B, WILL CALL REPORT TO DYANA ON TELEMETRY FLOOR.
--- NOTE | 2020-08-16 17:15 | NUR ---
TRANSFER NOTES REPORT TO DYANA ON SECOND FLOOR, PATIENT PLACED ON TELEMETRY PACK, TO ROOM 209B VIA WHEEL CHAIR, DYANA IN THE ROOM TO MEET PATIENT.
--- NOTE | 2020-08-16 17:45 | NUR ---
RECIEVED PT Telemetry admit from ICU BRAEDEN MORRIS admitted to Telemetry unit after SBAR received. Patient oriented to Cherie Tompkins, primary RN, unit, room, bed, and unit policies regarding patient care and visiting hours. Patient now on continuous telemetry monitoring, tele box # and telemetry reading on arrival to unit is . Patient placed on bedside oxygen, weighed by bedscale and encouraged to call if they need something. All questions and concerns addressed, patient verbalized understanding. Note: PT IS VERY DROWSY BUT ABLE TO WAKE UP AND ANSWER QUESTIONS. PT STATES THAT SHE'S VERY TIRED. DENIES PAIN AT THIS TIME. PT TAUGHT HOW TO SPLINT WHEN COUGHING. DEMONSTRATION RETURNED. PT PT ALSO AWARE THAT SHE HAS TO USE HER I.S. EVERY HOUR WHILE AWAKE. VERBALIZED UNDERSTANDING.
[2020-08-16] MEDS: ACETAMINOPHEN 325 MG TAB PO PRN (17:53)
--- NOTE | 2020-08-16 18:25 | NUR ---
PT GIVEN A TYLENOL FOR A TEMP OF 102.3 PT TOLERATED WELL. ABLE TO GIVE HER SELF WATER TO DRINK.
[2020-08-16] MEDS: metroNIDAZOLE 500MG/100ML 100 ML IV SCH (22:21)
[2020-08-16] MEDS: LINEZOLID 600MG/300ML 300 ML IV SCH (22:22)
[2020-08-17] MEDS: MORPHINE SULF INJ 2 MG/ML SYRINGE 1ML IV PRN ×2 (02:58→10:11)
[2020-08-17] MEDS: ENALAPRILAT 1.25 MG/ML-1ML VIAL IV SCH ×3 (06:00→18:00)
[2020-08-17] MEDS: metroNIDAZOLE 500MG/100ML 100 ML IV SCH ×3 (06:13→23:00)
[2020-08-17] MEDS: SODIUM CHLORIDE 0.9% 1,000 ML IV SCH ×2 (06:14→16:42)
[2020-08-17 06:34] LABS: Potassium 3.2 mmol/L (3.5-5.1)
[2020-08-17 06:49] LABS: Albumin 2.7 g/dL (3.4-5.0); BUN/Creatinine Ratio 9.3; Calcium 8.2 mg/dL (8.5-10.1); Total Protein 5.5 g/dL (6.4-8.2)
--- NOTE | 2020-08-17 07:00 | NUR ---
OPENING SHIFT NOTES Assumed care of patient from gas plant operator RN. Patient is alert and oriented x3, patient complaining of abdominal pain 4/10, refused medication. She was updated on the plan of care and verbalized understanding. Patient has a walker placed draining clear yellow urine to gravity, no loops or kinks noted in tubing, bag hung below bladder level. Bed is locked, in the lowest position, side rails up x2 and call light is in reach. She was encouraged to call for assistance as needed.
[2020-08-17 07:22] LABS: Basophils # (auto) 0.1 10 ^3/uL (0-0.2); Lymphocytes # (auto) 1.1 10 ^3/uL (0.4-5.4); Lymphocytes % (auto) 12.7 % (10.0-50.0); Mean Corpuscular Volume 98.6 fL (80.0-100.0); Nucleated Red Blood Cells % 0.1 %
[2020-08-17 07:24] LABS: Basophils % (auto) 0.8 % (0.0-2.0); Eosinophils # (auto) 0.2 10 ^3/uL (0-0.8); Eosinophils % (auto) 2.8 % (0.0-7.0); Hematocrit 29.3 % (36.0-46.0); Mean Corpuscular Hemoglobin 33.5 pg (28.0-32.0); Monocytes # (auto) 0.8 10 ^3/uL (0-1.3); Monocytes % (auto) 8.5 % (0.0-12.0); Neutrophils # (auto) 6.7 10 ^3/uL (1.6-8.6); Neutrophils % (auto) 75.2 % (37.0-80.0); Platelet Count (auto) 225 10^3/uL (140-450); Red Blood Cells 2.97 10^6/uL (4.0-5.20); Red Cell Distribution Width 14.4 % (11.8-14.3); White Blood Cell 8.9 10^3/uL (4.4-10.8)
--- NOTE | 2020-08-17 08:28 | NUR ---
ABDULAZIZ AT BEDSIDE Updated on the plan of care and patient potassium level. New orders for IV potassium as input by MD, orders to ambulate with the patient, will follow through.
[2020-08-17] MEDS ORDERED: POTASSIUM CHLORIDE 40 MEQ, LIDOCAINE 1% (LOCAL ANESTH.) 4 ML in SODIUM CHL 0.9% 100 ML IV ONE (08:30)
[2020-08-17 09:00] VITALS: BP 135/80
[2020-08-17] MEDS: levoFLOXacin 500MG 100 ML IV SCH (09:22)
--- NOTE | 2020-08-17 09:27 | NUR ---
CALL FROM FAMILY Patient's daughter Felicia called, after password verification she was updated on the plan of care and verbalized understanding. All questions answered.
[2020-08-17] MEDS: PANTOPRAZOLE 40 MG/10 ML VIAL INJ IV SCH ×2 (10:11→23:01)
--- NOTE | 2020-08-17 10:18 | NUR ---
RAIMUNDO AT BEDSIDE Updated on patient status, plan of care discussed with the patient and she verbalized understanding. No new orders received.
[2020-08-17] MEDS: LINEZOLID 600MG/300ML 300 ML IV SCH ×2 (11:11→23:01)
[2020-08-17] MEDS ORDERED: MORPHINE SULF INJ 2 MG/ML SYRINGE 1ML IV PRN (12:30)
--- NOTE | 2020-08-17 14:26 | NUR ---
PATIENT REFUSED AMBULATION Educated the patient on the importance on walking, tried to encourage patient to sit in the chair at bedside. Patient refused stating she was "too weak". Will try again later.
[2020-08-17 17:14] VITALS: BP 113/75
--- NOTE | 2020-08-17 17:41 | NUR ---
CALL FROM FAMILY Patient's daughter Felicia called, after password verification she was updated on the plan of care and verbalized understanding. All questions answered.
--- NOTE | 2020-08-17 21:23 | NUR ---
Paged DR Wall r/t pt with labored breathing and lung sounds are with crackles through out all lobes. Pt c/o generalized weakness and declining to get up OOB this evening per Dr Wall's orders. New orders received at this time. see written orders.
[2020-08-17] MEDS ORDERED: FUROSEMIDE 20 MG/2 ML VIAL IV ONE (21:30)
[2020-08-17] MEDS: ALBUTEROL SULF 2.5 MG/0.5ML(0.5%) NEB SOLN NEB SCH (22:39)
[2020-08-17 23:03] VITALS: BP 139/76
[2020-08-18 00:43] VITALS: BP 139/76
--- NOTE | 2020-08-18 00:49 | NUR ---
PT APPEARS MORE AWAKE AND ALERT. PT IS GETTING OOB TO BSC WITH STAND BY ASSIST AND NATHANAEL VERY WELL.
[2020-08-18] MEDS: ALBUTEROL SULF 2.5 MG/0.5ML(0.5%) NEB SOLN NEB SCH ×6 (02:19→23:24)
[2020-08-18] MEDS: ACETAMINOPHEN 325 MG TAB PO PRN (04:23)
[2020-08-18] MEDS: SODIUM CHLORIDE 0.9% 1,000 ML IV SCH ×3 (04:53→22:42)
[2020-08-18] MEDS: metroNIDAZOLE 500MG/100ML 100 ML IV SCH ×3 (04:54→21:13)
[2020-08-18 05:52] VITALS: BP 95/58
[2020-08-18] MEDS: ENALAPRILAT 1.25 MG/ML-1ML VIAL IV SCH ×4 (06:00→18:22)
[2020-08-18 06:03] LABS: Basophils # (auto) 0 10 ^3/uL (0-0.2); Basophils % (auto) 0.4 % (0.0-2.0); Eosinophils # (auto) 0.2 10 ^3/uL (0-0.8); Eosinophils % (auto) 3.3 % (0.0-7.0); Hematocrit 30.7 % (36.0-46.0); Hemoglobin 10.5 g/dL (12.2-16.2); Lymphocytes # (auto) 1.1 10 ^3/uL (0.4-5.4); Lymphocytes % (auto) 17.2 % (10.0-50.0); Mean Corpuscular Hemoglobin 33.7 pg (28.0-32.0); Mean Corpuscular Hgb Conc. 34.1 g/dL (32.0-36.0); Mean Corpuscular Volume 98.7 fL (80.0-100.0); Monocytes # (auto) 0.7 10 ^3/uL (0-1.3); Monocytes % (auto) 10.8 % (0.0-12.0); Neutrophils # (auto) 4.2 10 ^3/uL (1.6-8.6); Neutrophils % (auto) 68.3 % (37.0-80.0); Platelet Count (auto) 239 10^3/uL (140-450); Red Blood Cells 3.11 10^6/uL (4.0-5.20); Red Cell Distribution Width 14.7 % (11.8-14.3); White Blood Cell 6.2 10^3/uL (4.4-10.8)
[2020-08-18 06:12] LABS: Albumin 2.5 g/dL (3.4-5.0); Calcium 8.6 mg/dL (8.5-10.1)
[2020-08-18 06:18] LABS: BUN/Creatinine Ratio 7.9; Total Protein 5.9 g/dL (6.4-8.2)
[2020-08-18 06:24] LABS: Potassium 2.8 mmol/L (3.5-5.1)
--- NOTE | 2020-08-18 06:37 | NUR ---
PAGED DR CINTRON FOR CRITICAL POTASSIUM OF 2.8 AT THIS TIME.
--- NOTE | 2020-08-18 06:48 | NUR ---
DR CINTRON RETURNED PAGE AND NEW ORDERS RECEIVED AT THIS TIME. SEE WRITTEN ORDERS. ORBAV
[2020-08-18] MEDS ORDERED: POTASSIUM CHLORIDE 40 MEQ, LIDOCAINE 1% (LOCAL ANESTH.) 4 ML in SODIUM CHL 0.9% 100 ML IV ONE (07:00)
[2020-08-18 09:00] VITALS: BP 129/77
[2020-08-18] MEDS: levoFLOXacin 500MG 100 ML IV SCH (12:06)
[2020-08-18] MEDS: PANTOPRAZOLE 40 MG/10 ML VIAL INJ IV SCH ×2 (12:06→22:41)
[2020-08-18] MEDS: POTASSIUM CHL 20 Meq TABLET PO SCH ×2 (12:07→22:41)
[2020-08-18 13:00] VITALS: BP 123/76
--- NOTE | 2020-08-18 14:00 | NUR ---
PT. AGAIN REFUSED MN. TX., PT. STATES SHE DOESN'T WANT IT AND WANTS TO SLEEP. NO RESP. DISTRESS NOTED, NO TX GIVEN, PT. KNOW SHE CAN CALL IF SHE CHANGES HER MIND.
[2020-08-18] MEDS: MAGNESIUM SULFATE 1GM/100ML 100 ML IV SCH ×2 (14:33→17:46)
--- NOTE | 2020-08-18 15:04 | NUR ---
Nutrition Followup Notes Pt wt is 94.3 kg Pt was sleeping with no family at bedside at time of rounds. Pt is s/p lap amanda per MD note. Pt diet is advanced to clear liquids today with poor appetite aeb 25% PO intake per RN doc. Est. Energy Needs, ABW [id number] kcal (17-20 kcal/kgABW), Est Protein: 70-77 gms (1.0-1.1 gms/kgABW). Will continue to monitor pertinent labs and reassess nutrient need prn LABS: K 2.8 L, Creat 1.39 H, Gluc 144 H, Alb 2.5 L GI: Pt had 2 BM on 08/17 per RN doc BS: 18 mod risk. Refer to wound assessment report for full details. PES: 1) Altered nutrition related lab values r.t current chronic medical condition aeb hyperglycemia 2) Decreased nutrient needs r/t adiposity aeb pt`s high BMI of 39.3 kgm2 Comments 1) Advance diet as medically feasible 2) Refer to CDE on DC 3) Continue current plan of care f/u 2-3 days
[2020-08-18 17:00] VITALS: BP 115/73
[2020-08-18] MEDS: LINEZOLID 600MG/300ML 300 ML IV SCH ×2 (17:45→22:41)
--- NOTE | 2020-08-18 21:50 | NUR ---
PT WITH TEMP 103.1 COOLING MEASURES APPLIED, PT INSTRUCTED TO DEEP BREATH AND COUGH, AND TEMP DOWN TO 101.1 WITH IN MINUTES. WILL GIVE TYLENOL PER MD ORDERS. Addendum: 08/19/20 at 0501 by ONEAL DOHERTY RN CORRECTION: CHARTED ON WRONG PATIENT
[2020-08-18 21:57] VITALS: BP 125/67
[2020-08-18] MEDS: Ensure HIGH Protein Chocolate 8oz Bottle PO SCH (22:40)
[2020-08-19] MEDS: ALBUTEROL SULF 2.5 MG/0.5ML(0.5%) NEB SOLN NEB SCH ×5 (02:20→22:13)
[2020-08-19] MEDS: metroNIDAZOLE 500MG/100ML 100 ML IV SCH ×3 (04:59→20:13)
[2020-08-19] MEDS: ACETAMINOPHEN 325 MG TAB PO PRN ×2 (05:00→18:31)
--- NOTE | 2020-08-19 05:02 | NUR ---
PT C/O ABD/SURGICAL PAIN 03/25. PT REQUESTING TYLENOL PO AND REFUSING MORPHINE.
[2020-08-19] MEDS: ENALAPRILAT 1.25 MG/ML-1ML VIAL IV SCH ×5 (05:05→23:34)
[2020-08-19 05:22] VITALS: BP 114/62
[2020-08-19 06:59] LABS: Albumin 2.5 g/dL (3.4-5.0)
[2020-08-19 07:05] LABS: BUN/Creatinine Ratio 10.4; Bilirubin, Total 0.7 mg/dL (0.2-1.0); Total Protein 5.7 g/dL (6.4-8.2)
[2020-08-19 07:10] LABS: Potassium 2.8 mmol/L (3.5-5.1)
[2020-08-19] MEDS: Ensure HIGH Protein Chocolate 8oz Bottle PO SCH ×3 (08:16→17:44)
--- NOTE | 2020-08-19 08:34 | NUR ---
PAGED DR CINTRON TO NOTIFY HIM OF LOW POTASSIUM 2.8. PATIENT ALSO REQUESTING SOLID FOOD. JACKSON CATHETER REMOVED PER PATIENT REQUEST.
[2020-08-19 08:41] VITALS: BP 123/70
[2020-08-19] MEDS ORDERED: POTASSIUM CHLORIDE 80 MEQ, LIDOCAINE 1% (LOCAL ANESTH.) 6 ML in SODIUM CHL 0.9% 500 ML IV ONE (08:45)
[2020-08-19] MEDS: SODIUM CHLORIDE 0.9% 1,000 ML IV SCH ×2 (08:46→17:43)
[2020-08-19] MEDS: levoFLOXacin 500MG 100 ML IV SCH (09:07)
[2020-08-19] MEDS: PANTOPRAZOLE 40 MG/10 ML VIAL INJ IV SCH ×2 (10:03→22:18)
[2020-08-19] MEDS: POTASSIUM CHL 20 Meq TABLET PO SCH ×2 (10:16→22:19)
[2020-08-19] MEDS: LINEZOLID 600MG/300ML 300 ML IV SCH ×2 (10:17→22:19)
[2020-08-19 13:00] VITALS: BP 142/72
[2020-08-19 17:00] VITALS: BP 130/67
--- NOTE | 2020-08-19 19:10 | NUR ---
Opening Shift Note Assumed care of patient from day shift RN, awake and alert oriented x4. No S/S of distress/SOB or pain. Instructed on POC and to call for assist PRN, safety measures in place bed in lowest position, side rails up x2 and call light with in reach will continue to monitor for changes Q1hr and PRN.
[2020-08-19] MEDS: PROMETHAZINE HCL 25 MG/ML 1ML IV PRN (20:13)
--- NOTE | 2020-08-19 20:15 | NUR ---
Patient complained of nausea and pain 6/10 to abdomen right upper quadrant pain medication and nausea medication administered at this time.
--- NOTE | 2020-08-19 20:45 | NUR ---
reassessed pain and nausea at this time patient states 0/10 pain and no nausea at this time.
[2020-08-19 22:00] VITALS: BP 122/69
[2020-08-20] MEDS: ALBUTEROL SULF 2.5 MG/0.5ML(0.5%) NEB SOLN NEB SCH ×4 (01:57→14:19)
--- NOTE | 2020-08-20 02:00 | NUR ---
IV insertion IV access obtained, via clean sterile technique by inserting 22 gauge catheter at left inner wrist after first attempt. IV secured properly. No trauma to site. Patient tolerated well.
[2020-08-20] MEDS: ACETAMINOPHEN 325 MG TAB PO PRN ×2 (02:14→13:10)
--- NOTE | 2020-08-20 02:14 | NUR ---
Patient complained of 3/10 pain to abdomen right upper quadrant. Acetaminophen administered at this time.
--- NOTE | 2020-08-20 03:14 | NUR ---
Pain reassessment patient states no pain at this time.
[2020-08-20] MEDS: metroNIDAZOLE 500MG/100ML 100 ML IV SCH ×2 (03:34→11:36)
[2020-08-20 05:00] VITALS: BP 117/77
[2020-08-20] MEDS: ENALAPRILAT 1.25 MG/ML-1ML VIAL IV SCH ×2 (05:30→11:37)
[2020-08-20] MEDS: SODIUM CHLORIDE 0.9% 1,000 ML IV SCH ×2 (05:30→14:16)
[2020-08-20 07:22] LABS: Basophils # (auto) 0 10 ^3/uL (0-0.2); Basophils % (auto) 0.7 % (0.0-2.0); Eosinophils # (auto) 0.3 10 ^3/uL (0-0.8); Eosinophils % (auto) 5.2 % (0.0-7.0); Hematocrit 27.5 % (36.0-46.0); Hemoglobin 9.3 g/dL (12.2-16.2); Lymphocytes # (auto) 1.2 10 ^3/uL (0.4-5.4); Lymphocytes % (auto) 19.6 % (10.0-50.0); Mean Corpuscular Hemoglobin 33.3 pg (28.0-32.0); Mean Corpuscular Hgb Conc. 33.7 g/dL (32.0-36.0); Mean Corpuscular Volume 98.9 fL (80.0-100.0); Monocytes # (auto) 0.8 10 ^3/uL (0-1.3); Monocytes % (auto) 12.8 % (0.0-12.0); Neutrophils # (auto) 3.8 10 ^3/uL (1.6-8.6); Neutrophils % (auto) 61.7 % (37.0-80.0); Platelet Count (auto) 306 10^3/uL (140-450); Red Blood Cells 2.78 10^6/uL (4.0-5.20); Red Cell Distribution Width 15.2 % (11.8-14.3); White Blood Cell 6.2 10^3/uL (4.4-10.8)
[2020-08-20 07:27] LABS: Potassium 3.5 mmol/L (3.5-5.1)
[2020-08-20 07:37] LABS: Albumin 2.5 g/dL (3.4-5.0); BUN/Creatinine Ratio 9.6; Bilirubin, Total 0.5 mg/dL (0.2-1.0); Calcium 8.2 mg/dL (8.5-10.1); Total Protein 5.7 g/dL (6.4-8.2)
[2020-08-20] MEDS: Ensure HIGH Protein Chocolate 8oz Bottle PO SCH ×2 (08:00→11:37)
[2020-08-20 09:00] VITALS: BP 114/73
[2020-08-20] MEDS: PANTOPRAZOLE 40 MG/10 ML VIAL INJ IV SCH (09:26)
[2020-08-20] MEDS: POTASSIUM CHL 20 Meq TABLET PO SCH (09:26)
[2020-08-20] MEDS: levoFLOXacin 500MG 100 ML IV SCH (09:26)
[2020-08-20] MEDS: LINEZOLID 600MG/300ML 300 ML IV SCH (09:27)
[2020-08-20 10:30] VITALS: BP 120/78
--- NOTE | 2020-08-20 13:06 | NUR ---
Patient IV sites discontinued without incidence, patient discharge instructions given to patient, in tajik, patient verbalized understanding of instructions, follow up and medications. Waiting on patients ride. Patient also reports 3/10 abd pain at surgical site. will medicate.
--- NOTE | 2020-08-20 14:46 | NUR ---
assessment Patient is a 60 year old female who is alert and oriented. Patients cognitive abilities are intact. Prior to admission patient lived home with family and functioned independently. Patient informed me she is able to care for her own ADLs. Per patient she will return home to her prior living arrangements post discharge and family will transport her home. Patient may benefit from home health safety eval on discharge. Patient was admitted for ABD pain and had a cholecystectomy. I informed patient she has a right to speak to a social work professor regarding all care. I informed patient she has a right to participate in any and all discharge planning. Patient does not have a POA and advanced directive. I have offered patient information on POA and advanced directives. I informed the patient the advantages and benefits of having an Advanced Directive. Patient verbalized understanding and agreed to discharge plan. Addendum: 08/20/20 at 1456 by Viola WALKER Amended: Links added.
--- NOTE | 2020-08-20 15:21 | NUR ---
Patient taken downstairs to main lobby for discharge, family there to take patient home.
== END 2020-08-20 15:30 | disposition home or self-care (01) | DRG 263 ==
LOC: ER 10:44 → OVERFLOW 10:45 → CENTRAL 15:10 → TELE-CENTR 08-13 10:57 → ICU WEST 08-15 12:59 → TELE-WESTW 08-16 17:14
PROVIDERS: ATTEND Internal Medicine
PROC: 0DB68ZX Excision of Stomach, Via Natural or Artificial Opening Endoscopic, Diagnostic (ICD-10-PCS; 2020-08-11)
PROC: 3E013GC Introduction of Other Therapeutic Substance into Subcutaneous Tissue, Percutaneous Approach (ICD-10-PCS; 2020-08-14)
PROC: 0FT44ZZ Resection of Gallbladder, Percutaneous Endoscopic Approach (ICD-10-PCS; principal; 2020-08-14 12:09)
DX: K80.00 Calculus of gallbladder with acute cholecystitis without obstruction (principal); E43 Unspecified severe protein-calorie malnutrition; J18.9 Pneumonia, unspecified organism; I95.9 Hypotension, unspecified; K21.9 Gastro-esophageal reflux disease without esophagitis; N39.0 Urinary tract infection, site not specified; K29.71 Gastritis, unspecified, with bleeding; E11.65 Type 2 diabetes mellitus with hyperglycemia; K76.0 Fatty (change of) liver, not elsewhere classified; E78.5 Hyperlipidemia, unspecified; I10 Essential (primary) hypertension; E87.6 Hypokalemia; B96.81 Helicobacter pylori [H. pylori] as the cause of diseases classified elsewhere; K29.81 Duodenitis with bleeding; Z20.828 Contact with and (suspected) exposure to other viral communicable diseases; E66.01 Morbid (severe) obesity due to excess calories; Z82.49 Family history of ischemic heart disease and other diseases of the circulatory system; Z68.38 Body mass index [BMI] 38.0-38.9, adult; Z90.710 Acquired absence of both cervix and uterus; Z87.442 Personal history of urinary calculi; Z88.1 Allergy status to other antibiotic agents; Z88.5 Allergy status to narcotic agent; Z88.0 Allergy status to penicillin
CPT/HCPCS: 36415; 43239; 71045; 71275; 76705; 78226; 80053; 80202; 81001; 82150; 82270; 83036; 83690; 83735; 84484; 85014; 85018; 85025; 85610; 85730; 86850; 86900; 86901; 87040; 87081; 87493; 93005; 94640; 96361; 96365; 96375; C9113; G0378; J0330; J1885; J1956; J2001; J2250; J2405; J2704; J3490; J7060

== ENCOUNTER 2020-08-21 03:22 | Emergency (ER) | payer MEDICAID ==
[~2020-08-21] VITALS: Ht 154.9 cm; Wt 90.7 kg
[~2020-08-21 03:22] MED LIST changes: +ATOR20TA50 PO; +DICL1GEL50 TD; +FOLI1TAB6 PO; +HYDR-392 PO; +LISI-648 PO; -LISI2.5T47 PO; +METH2.5T PO; +MULT-927 PO; +OMEP-260 PO; -OMEP20TA PO; +POTA-180 PO; -POTA-220 PO
[2020-08-21 08:26] VITALS: BP 132/71
== END 2020-08-21 09:37 | disposition home or self-care (01) ==
LOC: EDBD 03:22 → ER 03:31
DX: R06.02 Shortness of breath (principal); F41.9 Anxiety disorder, unspecified; K29.00 Acute gastritis without bleeding; M19.90 Unspecified osteoarthritis, unspecified site; I10 Essential (primary) hypertension; Z90.89 Acquired absence of other organs; Z90.710 Acquired absence of both cervix and uterus
CPT/HCPCS: 71045; 74176

== ENCOUNTER 2020-10-03 16:35 | Emergency (ER) | payer MEDICAID, OTHER ==
[~2020-10-03] VITALS: Ht 160 cm; Wt 86.2 kg
[2020-10-03 23:05] LABS: Basophils # (auto) 0 10 ^3/uL (0-0.2); Basophils % (auto) 0.4 % (0.0-2.0); Eosinophils # (auto) 0.1 10 ^3/uL (0-0.8); Eosinophils % (auto) 0.8 % (0.0-7.0); Hematocrit 40.4 % (36.0-46.0); Hemoglobin 13.4 g/dL (12.2-16.2); Lymphocytes # (auto) 2.2 10 ^3/uL (0.4-5.4); Lymphocytes % (auto) 24.9 % (10.0-50.0); Mean Corpuscular Hemoglobin 32.1 pg (28.0-32.0); Mean Corpuscular Hgb Conc. 33.3 g/dL (32.0-36.0); Mean Corpuscular Volume 96.3 fL (80.0-100.0); Monocytes # (auto) 0.5 10 ^3/uL (0-1.3); Monocytes % (auto) 5.4 % (0.0-12.0); Neutrophils # (auto) 6.1 10 ^3/uL (1.6-8.6); Neutrophils % (auto) 68.5 % (37.0-80.0); Platelet Count (auto) 293 10^3/uL (140-450); Red Blood Cells 4.19 10^6/uL (4.0-5.20); White Blood Cell 8.9 10^3/uL (4.4-10.8)
[2020-10-03 23:22] LABS: INR 0.94 (0.9-1.15); Partial Thromboplastin Time 24.9 sec (23.0-31.2)
[2020-10-03 23:25] LABS: Potassium 4.6 mmol/L (3.5-5.1)
[2020-10-03 23:31] LABS: Albumin 4.2 g/dL (3.4-5.0); BUN/Creatinine Ratio 30.5; Calcium 9.3 mg/dL (8.5-10.1)
[2020-10-03 23:33] LABS: Bilirubin, Total 0.3 mg/dL (0.2-1.0); Total Protein 7.8 g/dL (6.4-8.2)
[2020-10-04 01:30] VITALS: BP 132/72
[2020-10-04] MEDS ORDERED: traMADol HCL 50 MG TAB ONE (01:44)
[2020-10-04] MEDS ORDERED: traMADol HCL 50 MG TAB PO ONE (01:45)
== END 2020-10-04 02:00 | disposition home or self-care (01) ==
LOC: EDBD 16:35 → ER 16:35 → EDUNIT# 16:35 → ER 10-04 02:00
DX: S00.431A Contusion of right ear, initial encounter (principal); S90.31XA Contusion of right foot, initial encounter; S80.01XA Contusion of right knee, initial encounter; S40.011A Contusion of right shoulder, initial encounter; Z79.899 Other long term (current) drug therapy; Z88.1 Allergy status to other antibiotic agents; Z88.5 Allergy status to narcotic agent; Z88.0 Allergy status to penicillin; W06.XXXA Fall from bed, initial encounter; Y93.89 Activity, other specified; Y92.89 Other specified places as the place of occurrence of the external cause; Y99.8 Other external cause status
CPT/HCPCS: 36415; 70450; 71250; 72125; 73030; 73560; 73630; 74176; 80053; 85025; 85610; 85730

== ENCOUNTER 2020-11-03 16:41 | Inpatient (IN) | payer MEDICAID ==
[~2020-11-03] VITALS: Ht 167.6 cm; Wt 81.6 kg
[2020-11-03 22:09] LABS: Basophils # (auto) 0 10 ^3/uL (0-0.2); Basophils % (auto) 0.6 % (0.0-2.0); Eosinophils # (auto) 0 10 ^3/uL (0-0.8); Eosinophils % (auto) 0.1 % (0.0-7.0); Hematocrit 43.8 % (36.0-46.0); Hemoglobin 14.4 g/dL (12.2-16.2); Lymphocytes # (auto) 2.2 10 ^3/uL (0.4-5.4); Lymphocytes % (auto) 34.3 % (10.0-50.0); Mean Corpuscular Hemoglobin 31.2 pg (28.0-32.0); Mean Corpuscular Hgb Conc. 32.9 g/dL (32.0-36.0); Mean Corpuscular Volume 94.7 fL (80.0-100.0); Monocytes # (auto) 0.5 10 ^3/uL (0-1.3); Neutrophils # (auto) 3.8 10 ^3/uL (1.6-8.6); Platelet Count (auto) 254 10^3/uL (140-450); Red Blood Cells 4.62 10^6/uL (4.0-5.20); Red Cell Distribution Width 14.5 % (11.8-14.3); White Blood Cell 6.6 10^3/uL (4.4-10.8)
[2020-11-03 22:22] LABS: Albumin 4.1 g/dL (3.4-5.0); Anion Gap 10 (5-15); Blood Urea Nitrogen 30 mg/dL (7-18); Calcium 9.2 mg/dL (8.5-10.1); Carbon Dioxide 21 mmol/L (21-32); Chloride 105 mmol/L (98-107); Glucose 88 mg/dL (74-106); Potassium 3.6 mmol/L (3.5-5.1); Sodium 136 mmol/L (136-145)
[2020-11-03 22:38] LABS: Alanine Aminotransferase 60 U/L (13-56); Alkaline Phosphatase 119 U/L (45-117); Aspartate Aminotransferase 33 U/L (15-37); BUN/Creatinine Ratio 23.4; Bilirubin, Total 0.2 mg/dL (0.2-1.0); GFR African American 55 mL/min; GFR Non-African American 45 mL/min; Total Protein 8.2 g/dL (6.4-8.2)
[2020-11-04] MEDS ORDERED: fentaNYL CITRATE 100 MCG/2 ML VL IV ONE (01:00)
[2020-11-04] MEDS ORDERED: ONDANSETRON HCL 4 MG/2 ML VIAL IV ONE (01:00)
[2020-11-04 03:21] LABS: Urine Bacteria NONE SEEN /hpf (None Seen); Urine Blood Negative /uL (Negative); Urine Mucus FEW (None Seen); Urine Specific Gravity 1.033 (1.001-1.035); Urine WBC 18 /hpf (0 - 5)
[2020-11-04] MEDS ORDERED: AZITHROMYCIN 500MG/ 250ML 250 ML IV ONE (05:15)
[2020-11-04] MEDS ORDERED: DOXYCYCLINE 100MG/250ML 250 ML IV ONE (05:15)
[2020-11-04] MEDS ORDERED: DexAMETHasone SOD PHOS 10MG/1ML VIAL INJ IV ONE (05:15)
[2020-11-04 06:36] LABS: Basophils # (auto) 0 10 ^3/uL (0-0.2); Basophils % (auto) 0.2 % (0.0-2.0); Eosinophils # (auto) 0 10 ^3/uL (0-0.8); Hematocrit 40.7 % (36.0-46.0); Hemoglobin 13.4 g/dL (12.2-16.2); Lymphocytes # (auto) 2.4 10 ^3/uL (0.4-5.4); Lymphocytes % (auto) 35.6 % (10.0-50.0); Mean Corpuscular Hemoglobin 31.2 pg (28.0-32.0); Mean Corpuscular Hgb Conc. 32.9 g/dL (32.0-36.0); Mean Corpuscular Volume 94.9 fL (80.0-100.0); Monocytes # (auto) 0.5 10 ^3/uL (0-1.3); Monocytes % (auto) 7.9 % (0.0-12.0); Neutrophils # (auto) 3.7 10 ^3/uL (1.6-8.6); Neutrophils % (auto) 56.3 % (37.0-80.0); Nucleated Red Blood Cells % 0.1 %; Platelet Count (auto) 218 10^3/uL (140-450); Red Blood Cells 4.29 10^6/uL (4.0-5.20); Red Cell Distribution Width 14.3 % (11.8-14.3); White Blood Cell 6.6 10^3/uL (4.4-10.8)
[2020-11-04 06:40] LABS: INR 0.97 (0.9-1.15)
[2020-11-04 06:46] LABS: Alanine Aminotransferase 49 U/L (13-56); Albumin 3.7 g/dL (3.4-5.0); Anion Gap 11 (5-15); Aspartate Aminotransferase 31 U/L (15-37); BUN/Creatinine Ratio 19.3; Blood Urea Nitrogen 37 mg/dL (7-18); Calcium 8.6 mg/dL (8.5-10.1); Carbon Dioxide 19 mmol/L (21-32); Chloride 105 mmol/L (98-107); GFR African American 34 mL/min; GFR Non-African American 28 mL/min; Glucose 78 mg/dL (74-106); Magnesium 1.8 mg/dL (1.6-2.6); Sodium 135 mmol/L (136-145)
[2020-11-04 06:51] LABS: Alkaline Phosphatase 105 U/L (45-117); Bilirubin, Total 0.2 mg/dL (0.2-1.0); Total Protein 7.2 g/dL (6.4-8.2)
[2020-11-04] MEDS ORDERED: DOCUSATE SOD 100 MG CAP PO PRN (09:15)
[2020-11-04] MEDS ORDERED: ONDANSETRON HCL 4 MG/2 ML VIAL IV PRN (09:15)
[2020-11-04] MEDS ORDERED: TEMAZEPAM 15 MG CAP PO PRN (09:15)
[2020-11-04] MEDS ORDERED: NITROGLYCERIN 0.4 MG SL TAB SL PRN (09:15)
[2020-11-04] MEDS ORDERED: ACETAMINOPHEN 500 MG TAB PO PRN (09:15)
[2020-11-04 10:00] LABS: Albumin 3.5 g/dL (3.4-5.0); Calcium 8.5 mg/dL (8.5-10.1); Potassium 4.1 mmol/L (3.5-5.1)
[2020-11-04 10:08] LABS: Bilirubin, Total 0.2 mg/dL (0.2-1.0); CRP High Sensitivity 6.3 mg/dL (< 0.3); Total Protein 7.1 g/dL (6.4-8.2)
[2020-11-04] MEDS: CHOLECALCIFEROL (VITD3) 2,000 UNIT CAP PO SCH (10:22)
[2020-11-04] MEDS: ASCORBIC ACID 1,000 MG TAB PO SCH (10:22)
[2020-11-04] MEDS: FAMOTIDINE 20 MG TAB PO SCH (10:22)
[2020-11-04] MEDS: FOLIC ACID 1 MG TAB PO SCH (10:22)
[2020-11-04] MEDS: MULTIPLE VITAMINS W/ MINERALS TAB PO SCH (10:22)
[2020-11-04] MEDS: ENOXAPARIN SOD 40 MG/0.4 ML SYRINGE SC SCH (10:22)
[2020-11-04] MEDS: AZITHROMYCIN 500MG/D5WorNS 250ml IV SCH (14:45)
[2020-11-04] MEDS ORDERED: ATORVASTATIN 20 MG TAB PO SCH (22:00)
[2020-11-05] MEDS: FAMOTIDINE 20 MG TAB PO SCH ×2 (05:42→11:00)
[2020-11-05 09:00] LABS: Basophils # (auto) 0 10 ^3/uL (0-0.2); Basophils % (auto) 0.2 % (0.0-2.0); Eosinophils # (auto) 0 10 ^3/uL (0-0.8); Lymphocytes # (auto) 1.9 10 ^3/uL (0.4-5.4); Lymphocytes % (auto) 29.7 % (10.0-50.0); Mean Corpuscular Hemoglobin 31.3 pg (28.0-32.0); Mean Corpuscular Hgb Conc. 33.5 g/dL (32.0-36.0); Mean Corpuscular Volume 93.4 fL (80.0-100.0); Monocytes # (auto) 0.4 10 ^3/uL (0-1.3); Monocytes % (auto) 5.4 % (0.0-12.0); Neutrophils # (auto) 4.2 10 ^3/uL (1.6-8.6); Neutrophils % (auto) 64.7 % (37.0-80.0); Nucleated Red Blood Cells % 0.1 %; Platelet Count (auto) 211 10^3/uL (140-450); Red Blood Cells 3.85 10^6/uL (4.0-5.20); Red Cell Distribution Width 14.5 % (11.8-14.3); White Blood Cell 6.5 10^3/uL (4.4-10.8)
[2020-11-05 09:13] LABS: Albumin 3.3 g/dL (3.4-5.0); Calcium 8.9 mg/dL (8.5-10.1)
[2020-11-05 09:16] LABS: BUN/Creatinine Ratio 30.5; Bilirubin, Total 0.2 mg/dL (0.2-1.0); Total Protein 6.8 g/dL (6.4-8.2)
[2020-11-05] MEDS ORDERED: DexAMETHasone SOD PHOS 10MG/1ML VIAL INJ IV SCH (10:00)
[2020-11-05] MEDS: ASCORBIC ACID 1,000 MG TAB PO SCH (11:00)
[2020-11-05] MEDS: MULTIPLE VITAMINS W/ MINERALS TAB PO SCH (11:00)
[2020-11-05] MEDS: FOLIC ACID 1 MG TAB PO SCH (11:00)
[2020-11-05] MEDS: AZITHROMYCIN 500MG/D5WorNS 250ml IV SCH (11:00)
[2020-11-05] MEDS: CHOLECALCIFEROL (VITD3) 2,000 UNIT CAP PO SCH (11:00)
[2020-11-05] MEDS: ENOXAPARIN SOD 40 MG/0.4 ML SYRINGE SC SCH (11:00)
[2020-11-05 16:01] LABS: Urine Bacteria FEW /hpf (None Seen); Urine Blood Negative /uL (Negative); Urine Mucus FEW (None Seen); Urine Specific Gravity 1.022 (1.001-1.035); Urine WBC 60 /hpf (0 - 5)
[2020-11-05 19:00] VITALS: BP 124/69
== END 2020-11-05 19:37 | disposition home or self-care (01) | DRG 137 ==
LOC: EDBD 16:41 → ER 16:41 → OVERFLOW 16:42
PROVIDERS: ADMIT Nurse Practitioner; ATTEND Nurse Practitioner
DX: U07.1 COVID-19 (principal); J12.89 Other viral pneumonia; J96.01 Acute respiratory failure with hypoxia; N39.0 Urinary tract infection, site not specified; K52.9 Noninfective gastroenteritis and colitis, unspecified; E86.0 Dehydration; I10 Essential (primary) hypertension; E66.9 Obesity, unspecified; E78.5 Hyperlipidemia, unspecified; Z79.899 Other long term (current) drug therapy; Z82.49 Family history of ischemic heart disease and other diseases of the circulatory system; Z87.442 Personal history of urinary calculi; Z90.49 Acquired absence of other specified parts of digestive tract; Z88.1 Allergy status to other antibiotic agents; Z88.6 Allergy status to analgesic agent; Z88.8 Allergy status to other drugs, medicaments and biological substances; Z88.0 Allergy status to penicillin; N17.0 Acute kidney failure with tubular necrosis; R55 Syncope and collapse
CPT/HCPCS: 36415; 70450; 71045; 74176; 80053; 81001; 83036; 83605; 83615; 83690; 83735; 83880; 84443; 84484; 85025; 85379; 85610; 85730; 86141; 87040; 87426; 93005; 93886; 96365; 96375; 97163; G0378; J1100; J2405; J3490

== ENCOUNTER 2025-06-28 08:47 | Inpatient (IN) | payer MEDICARE, MEDICAID ==
[~2025-06-28] VITALS: Ht 172.7 cm; Wt 95.3 kg
[~2025-06-28 08:47] MED LIST changes: -DICL1GEL50 TD; +DICL1GEL73 TD; +FOLI-119 PO; -FOLI1TAB6 PO; -LISI-648 PO; +LISI10TA34 PO; -OMEP-260 PO; +OMEP1CAP70 PO
--- NOTE | 2025-06-28 09:41 | ED.PDOC ---
GI ASSESSMENT HPI Comments 65 year old female presents to the ED via EMS with a chief complaint of abdominal pain onset last night. Patient states she began experiencing upper abdominal pain as well as nausea/vomiting, pain worsen this morning. Patient began experiencing diarrhea this morning. In route to ED, patient was given 4 mg Zofran by EMS, currently rates pain 10/10. Patient's household is sick with flu- like symptoms. PMHx HTN. Denies fevers, chills, cough, congestion, sore throat, dizziness, headache, chest pain, shortness of breath, dysuria, hematuria. No other symptoms or modifying factors present at this time. Chief Complaint: Abdominal Pain Time Seen by MD: 09:20 Primary Care Provider: PT UNSURE Reviewed Notes: Medications, Allergies Allergies: Coded Allergies: Amoxicillin (Verified Allergy, Unknown, 06/27/19) Codeine (Verified Allergy, Unknown, 08/08/15) Penicillins (Verified Allergy, Unknown, 11/10/16) Home Meds Reported Medications Diclofenac Sodium (Topical) (Diclofenac Sodium) 1 % Gel, 1 APPLIC TD HS, GEL 08/10/20 Multiple Vitamins W/ Minerals (Centrum Silver 50+Women) 1 Tab Tab, 1 TAB PO DAILY, TAB 08/10/20 Methotrexate (Methotrexate) 2.5 Mg Tab, 8 TAB PO QWEEKLY, MG 8 TABS PO Q Thursday08/10/20 Hydrocodone-Acetaminophen ([place] 7.5-325 mg) 1 Tab Tab, 1 TAB PO HS, TAB 08/10/20 Atorvastatin Calcium (ATORVASTATIN CALCIUM) 20 Mg Tab, 1 TAB PO HS, #30 TAB 5 Re fills 08/10/20 Folic Acid (Folic Acid) 1 Mg Tab, 1 MG PO DAILY, MG 08/10/20 Lisinopril (Lisinopril) 10 Mg Tab, 10 MG PO DAILY, TAB 08/10/20 Potassium Chloride (Potassium Chloride ER) 20 Meq Tab, 20 MEQ PO HS, TAB 08/10/20 Omeprazole (Omeprazole Dr) 20 Mg Cap, 20 MG PO BID, CAP 08/10/20 Information Source: Patient, Emergency Med Personnel Mode of Arrival: EMS Timing: Hours Duration: Since onset Prehospital treatment: Other (Zofran 4 mg) Quality: Sharp Severity: Moderate Recent: None Recent Hx of: None Pain Location: Epigastric, RUQ, LUQ Modifying Factors: Nothing Associated sign and symptoms: Nausea, Vomiting, Abdominal Pain Past Medical History PAST MEDICAL HISTORY: HTN Surgical History: Cholecystectomy 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 Family History Family History: Reviewed,noncontributory to illness Social History Smoker: Non-Smoker Alcohol: Denies ETOH Use Drugs: Denies Drug Use Lives In: Home Constitutional: denies: chills, diaphoresis, fatigue, fever, malaise, sweats, weakness, others EENTM: denies: blurred vision, double vision, ear bleeding, ear discharge, ear drainage, ear pain, ear ringing, eye pain, eye redness, hearing loss, mouth pain, mouth swelling, nasal discharge, nose bleeding, nose congestion, nose pain, photophobia, tearing, throat pain, throat swelling, voice changes, others Respiratory: denies: cough, hemoptysis, orthopnea, SOB at rest, shortness of breath, SOB with excertion, stridor, wheezing, others Cardiovascular: denies: chest pain, dizzy spells, diaphoresis, Dyspnea on exertion, edema, irregular heart beat, left arm pain, lightheadedness, palpitations, PND, syncope, others Gastrointestinal: reports: abdominal pain, diarrhea, nausea, vomiting; denies: abdomen distended, blood streaked bowels, constipated, dysphagia, difficulty swallowing, hematemesis, melena, poor appetite, poor fluid intake, rectal bleeding, rectal pain, others Genitourinary: denies: abnormal vagina bleeding, burning, dyspareunia, dysuria, flank pain, frequency, hematuria, incontinence, pain, , vagina discharge, urgency, others Neurological: denies: dizziness, fainting, headache, left sided numbness, left sided weakness, numbness, paresthesia, pre-existing deficit, right sided numbness, right sided weakness, seizure, speech problems, tingling, tremors, we akness, others Musculoskeletal: denies: back pain, gout, joint pain, joint swelling, muscle pain, muscle stiffness, neck pain, others Integumetry: denies: bruises, change in color, change in hair/nails, dryness, laceration, lesions, lumps, rash, wounds, others Allergic/Immunocompromised: denies: Difficulty Healing, Frequent Infections, Hives, Itching, others Hematologic/Lymphatic: denies: anemia, blood clots, easy bleeding, easy bruising, swollen glands, others Endocrine: denies: excessive hunger, excessive sweating, excessive thirst, excessive urination, flushing, intolerance to cold, intolerance to heat, unexplained weight gain, unexplained weight loss, others Psychiatric: denies: anxiety, bipolar disorder, depression, hopeless, panic disorder, schizophrenia, sleepless, suicidal, others All Other Systems: Reviewed and Negative Physical Exam General Appearance: Normal HEENT: Normal ENT Inspection, Pharynx Normal, TMs Normal Neck: Full Range of Motion, Non-Tender, Normal, Normal Inspection Respiratory: Chest Non-Tender, Lungs Clear, No Accessory Muscle Use, No Respiratory Distress, Normal Breath Sounds Cardiovascular: No Edema, No JVD, No Murmur, No Gallop, Normal Peripheral Pulses, Regular Rate/Rhythm Breast Exam: Deferred Gastrointestinal: No Organomegaly, Non Tender, No Pulsatile Mass, Normal Bowel Sounds, Soft Genitalia: Deferred Pelvic: Deferred Rectal: Deferred Extremities: No calf tenderness, Normal capillary refill, Normal inspection, Normal range of motion, Non-tender, No pedal edema Musculoskeletal : Apperance: Normal Neurologic: Alert, recreational counselor II-XII nml as Tested, No Motor Deficits, Normal Affect, Normal Mood, No Sensory Deficits Cerebellar Function: Normal Reflexes: Normal Skin: Dry, Normal Color, Warm Lymphatic: No Adenopathy Was a procedure done? Was a procedure done?: No GI differential Dx Differential Diagnosis: Gastritis/PUD, Gastroenteritis, Dehydration, Electrolyte Imbalance, Bacterial, Viral X-Ray, Labs, Meds, VS Vital Signs Date Time Temp Pulse Resp B/P (MAP) Pulse Ox O2 Delivery O2 Flow Rate FiO2 06/28/25 11:44 90 18 148/78 06/28/25 11:38 98.0 90 16 148/78 (101) 98 98.0 06/28/25 10:27 86 14 157/83 (107) 98 06/28/25 08:55 98.1 81 17 142/85 96 98.1 06/28/25 08:49 85 Lab Test 06/28/25 09:37 Range/Units White Blood Count 13.2 H 4.4-10.8 10^3/uL Red Blood Count 4.15 4.0-5.20 10^6/uL Hemoglobin 13.8 12.2-16.2 g/dL Hematocrit 40.5 36.0-46.0 % Mean Corpuscular Volume 97.5 80.0-100.0 fL Mean Corpuscular Hemoglobin 33.2 H 28.0-32.0 pg Mean Corpuscular Hemoglobin Concent 34.1 32.0-36.0 g/dL Red Cell Distribution Width 13.2 11.8-14.3 % Platelet Count 293 140-450 10^3/uL Mean Platelet Volume 8.1 6.9-10.8 fL Neutrophils (%) (Auto) 76.7 37.0-80.0 % Lymphocytes (%) (Auto) 18.4 10.0-50.0 % Monocytes (%) (Auto) 4.2 0.0-12.0 % Eosinophils (%) (Auto) 0.6 0.0-7.0 % Basophils (%) (Auto) 0.1 0.0-2.0 % Neutrophils # (Auto) 10.1 H 1.6-8.6 10 ^3/uL Lymphocytes # (Auto) 2.4 0.4-5.4 10 ^3/uL Monocytes # (Auto) 0.5 0-1.3 10 ^3/uL Eosinophils # (Auto) 0.1 0-0.8 10 ^3/uL Basophils # (Auto) 0 0-0.2 10 ^3/uL Nucleated Red Blood Cells 0.0 % Sodium Level 140 136-145 mmol/L Potassium Level 4.0 3.5-5.1 mmol/L Chloride Level 106 98-107 mmol/L Carbon Dioxide Level 22 20-31 mmol/L Anion Gap 12 5-15 Blood Urea Nitrogen 25 H 9-23 mg/dL Creatinine 1.19 H 0.550-1.02 mg/dL Glomerular Filtration Rate Calc 50 >90 mL/min BUN/Creatinine Ratio 21.0 H 10.0-20.0 Serum Glucose 113 H 74-106 mg/dL Calcium Level 9.6 8.7-10.4 mg/dL Beta HCG, Quantitative 4.6 H 1.5-4.2 mIU/mL Current Medications Medications (Trade) Dose Ordered Sig/Jordy Route Start Time Stop Time Status Last Admin Sodium Chloride 1,000 ml @ 1,000 mls/hr Q1H ONCE IV 06/28/25 09:30 06/28/25 10:29 DC 06/28/25 11:44 Morphine Sulfate 4 mg ONCE ONCE IV 06/28/25 09:30 06/28/25 09:31 DC 06/28/25 11:44 Ondansetron HCl (Zofran) 4 mg ONCE ONCE IV 06/28/25 09:30 06/28/25 09:31 DC 06/28/25 11:44 [place] [id number] Ph: [phone] DIAGNOSTIC IMAGING Diagnostic Imaging Report : [id number] Signed PATIENT: BRAEDEN MORRIS ACCT: [id number] UNIT: [id number] : 1960 LOC: ER ROOM / BED: / AGE / SEX: 65 / F ADM STATUS: REG ER SERVICE 0 ORDERING PHYSICIAN: SAMPSON CAMARILLO MD PROCEDURE(s): ABPLIV - CT AB PEL WITH IV CON ONLY REASON: abdominal pain ORDER NUMBER(s): [id number], ACCESSION NUMBER(s): [id number] Exam: CT CT AB PEL WITH IV CON ONLY History: abdominal pain COMPARISON: CT ABD PELVIS WO CONTRAST on DOS: 11/03/20 Technique: Multidetector spiral CT of the abdomen and pelvis was performed from lung bases to pubic symphysis. Intravenous contrast was administered during this examination. Portal venous imaging was obtained. Axial, coronal and sagittal multiplanar reformats were performed by the technologist on a separate workstation. Radiation Dose : Abdomen/Pelvis: CTDIvol 22.34 mGy, DLP 1274.47 mGy*cm. CONTRAST: Type of contrast: Omni 300 Contrast injected: 100 mL Findings: Lung Bases: No acute or significant lung base finding. Normal heart size. No pleural or pericardial effusion. Liver: Diffuse hepatic steatosis. Gallbladder and biliary Tree: Gallbladder is surgically absent. Spleen: Unremarkable Pancreas: The pancreas is normal in appearance without focal lesions or abnormal enhancement. Adrenal Glands: Unremarkable Kidneys: Bilateral renal calculi measuring up to 3 mm. No hydronephrosis. Bladder: Unremarkable Bowel: The stomach is grossly normal in appearance. Small bowel and colon are normal in caliber and distribution. The appendix is not visualized; however, no secondary findings of acute appendicitis identified. Mild diffuse wall thickening of the colon which is underdistended. Ascites: Absent Lymphadenopathy: No mesenteric, retroperitoneal or periportal lymphadenopathy. Abdominal wall and Mesentery: Injection granulomas in the bilateral gluteal regions. Vasculature: The visualized abdominal aorta is normal in size and caliber. Abdominal and pelvic vessels demonstrate normal enhancement. Splenic artery aneurysm measuring up to 15 mm. Pelvic Organs: The uterus is surgically absent. Musculoskeletal: No aggressive focal bony lesions, acute fractures or dislocation. IMPRESSION: 1. No acute abdominal or pelvic finding. Diffuse hepatic steatosis. Bilateral nonobstructive renal calculi. Mild diffuse wall thickening of the colon which is underdistended. Colitis is not excluded. Clinical correlation and continued follow-up is recommended. Splenic artery aneurysm measuring up to 15 mm. This can be further evaluated with CTA of the abdomen. Radiation optimization: All CT scans at this facility use at least one of these dose optimization techniques: Automated exposure control mA and/or kV adjustment per patient size (includes targeted exams where dose is matched to clinical indication) or iterative reconstruction. HS:Y ATED BY: BRIAN DUNNE MD DICTATED DATE/TIME: 06/28/25 1159 SIGNED BY: BRIAN DUNNE MD SIGNED DATE/TIME: 06/28/25 1159 CC: Time of 1ST Reevaluation: 09:50 Reevaluation 1ST: Unchanged Patient Education/Counseling: Diagnosis, Treatment, Prognosis Family Education/Counseling: No Family Present Additional Information The following tests were ordered, and results were reviewed by me: EKG, BETA HCG, CBC, UA, CT AB PEL WITH IV CON Additional Information was gathered from interviewing the following independent historians: EMS I reviewed and agreed with the following test results read by other providers: CT AB PEL WITH IV CON I discussed treatment and results with medical personnel and: patient Comprehensive systems review obtained and negative except for what is stated in the HPI. SEPSIS Sepsis Screen Date sepsis recognized/suspect: Jun 28, 2025 Time Sepsis recognized/suspect: 0858 Recent Procedure: No On Antibiotic Therapy: No Respiratory Rate >20: No Heart Rate >90: No Temp<36 C (96.8 F) or >38.3 C: No SBP <90 or MAP <65 mmHG: No New Acute Mental Status Change: No Is the patient on CPAP, BIPAP,: No Physician Orders Electrocardigram (06/28/25 08:52) Urinalysis (06/28/25 09:21) Ct Ab Pel With Iv Con Only (06/28/25 09:21) Vital Signs Date Time Temp Pulse Resp B/P (MAP) Pulse Ox O2 Delivery O2 Flow Rate FiO2 06/28/25 11:44 90 18 148/78 06/28/25 11:38 98.0 90 16 148/78 (101) 98 98.0 06/28/25 10:27 86 14 157/83 (107) 98 06/28/25 08:55 98.1 81 17 142/85 96 98.1 06/28/25 08:49 85 Laboratory Tests Test 06/28/25 09:37 White Blood Count 13.2 10^3/uL (4.4-10.8) H Medications Medications Dose Ordered Sig/Jordy Route Start Time Stop Time Status Last Admin Dose Admin Morphine Sulfate 4 mg ONCE ONCE IV 06/28/25 09:30 06/28/25 09:31 DC 06/28/25 11:44 Ondansetron HCl 4 mg ONCE ONCE IV 06/28/25 09:30 06/28/25 09:31 DC 06/28/25 11:44 Sodium Chloride 1,000 ml @ 1,000 mls/hr Q1H ONCE IV 06/28/25 09:30 06/28/25 10:29 DC 06/28/25 11:44 Critical Care Note Critical Care Time?: No Stability Stability form required: No I personally scribed for SAMPSON CAMARILLO MD ([email or web address]) on 06/28/25 at 09:41. Electronically submitted by Hanna Peralta ([email or web address]). I personally scribed for SAMPSON CAMARILLO MD ([email or web address]) on 06/28/25 at 09:51. Electronically submitted by Hanna Peralta ([email or web address]). I personally scribed for SAMPSON CAMARILLO MD ([email or web address]) on 06/28/25 at 12:59. Electronically submitted by Hanna Peralta ([email or web address]). SAMPSON CAMARILLO MD Jun 28, 2025 09:41
[2025-06-28 10:00] LABS: Hematocrit 40.5 % (36.0-46.0); Hemoglobin 13.8 g/dL (12.2-16.2); Mean Corpuscular Hemoglobin 33.2 pg (28.0-32.0); Mean Corpuscular Volume 97.5 fL (80.0-100.0); Nucleated Red Blood Cells % 0.0 %
[2025-06-28 10:28] LABS: Chloride 106 mmol/L (98-107); Potassium 4.0 mmol/L (3.5-5.1); Sodium 140 mmol/L (136-145)
[2025-06-28 10:29] LABS: Anion Gap 12 (5-15); Carbon Dioxide 22 mmol/L (20-31)
[2025-06-28 10:30] LABS: Calcium 9.6 mg/dL (8.7-10.4)
[2025-06-28 10:34] LABS: BUN/Creatinine Ratio 21.0 (10.0-20.0)
[2025-06-28 10:48] LABS: Blood Urea Nitrogen 25 mg/dL (9-23); Glucose 113 mg/dL (74-106)
[2025-06-28] MEDS: IOHEXOL 300 MG/ML 100ML BOTTLE IJ ONE (11:13)
[2025-06-28] MEDS: MORPHINE SULFATE 4 MG/ML SYR/VIAL IV ONE (11:44)
[2025-06-28] MEDS: ONDANSETRON HCL 4 MG/2 ML VIAL IV ONE (11:44)
[2025-06-28] MEDS: SODIUM CHLORIDE 0.9% 1,000 ML IV ONE (11:44)
--- NOTE | 2025-06-28 12:00 | DVH ---
Exam: CT CT AB PEL WITH IV CON ONLY History: abdominal pain COMPARISON: CT ABD PELVIS WO CONTRAST on DOS: 11/03/20 Technique: Multidetector spiral CT of the abdomen and pelvis was performed from lung bases to pubic symphysis. Intravenous contrast was administered during this examination. Portal venous imaging was obtained. Axial, coronal and sagittal multiplanar reformats were performed by the technologist on a separate workstation. Radiation Dose : Abdomen/Pelvis: CTDIvol 22.34 mGy, DLP 1274.47 mGy*cm. CONTRAST: Type of contrast: Omni 300 Contrast injected: 100 mL Findings: Lung Bases: No acute or significant lung base finding. Normal heart size. No pleural or pericardial effusion. Liver: Diffuse hepatic steatosis. Gallbladder and biliary Tree: Gallbladder is surgically absent. Spleen: Unremarkable Pancreas: The pancreas is normal in appearance without focal lesions or abnormal enhancement. Adrenal Glands: Unremarkable Kidneys: Bilateral renal calculi measuring up to 3 mm. No hydronephrosis. Bladder: Unremarkable Bowel: The stomach is grossly normal in appearance. Small bowel and colon are normal in caliber and d istribution. The appendix is not visualized; however, no secondary findings of acute appendicitis boogie ntified. Mild diffuse wall thickening of the colon which is underdistended. Ascites: Absent Lymphadenopathy: No mesenteric, retroperitoneal or periportal lymphadenopathy. Abdominal wall and Mesentery: Injection granulomas in the bilateral gluteal regions. Vasculature: The visualized abdominal aorta is normal in size and caliber. Abdominal and pelvic vess els demonstrate normal enhancement. Splenic artery aneurysm measuring up to 15 mm. Pelvic Organs: The uterus is surgically absent. Musculoskeletal: No aggressive focal bony lesions, acute fractures or dislocation. IMPRESSION: 1. No acute abdominal or pelvic finding. Diffuse hepatic steatosis. Bilateral nonobstructive renal ca lculi. Mild diffuse wall thickening of the colon which is underdistended. Colitis is not excluded. C linical correlation and continued follow-up is recommended. Splenic artery aneurysm measuring up to 1 5 mm. This can be further evaluated with CTA of the abdomen. Radiation optimization: All CT scans at this facility use at least one of these dose optimization jones hniques: Automated exposure control mA and/or kV adjustment per patient size (includes targeted exams where dose is matched to clinical indication) or iterative reconstruction. HS:Y
[2025-06-28 13:16] VITALS: PULSE 74; RESP 19; O2SAT 96
[2025-06-28] MEDS ORDERED: UPAD15TA PO (15:42)
[2025-06-28] MEDS ORDERED: LISI20TA56 PO (15:42)
[2025-06-28] MEDS ORDERED: ATOR10TA PO (15:42)
[2025-06-28] MEDS ORDERED: SUL500T PO (15:42)
[2025-06-28] MEDS ORDERED: DOCUSATE SOD 100 MG CAP PO PRN (15:45)
[2025-06-28] MEDS ORDERED: HYDROcodone-ACET 5/325MG TAB PO PRN (15:45)
[2025-06-28] MEDS ORDERED: cefTRIAXone 1GM/50ML D5W 50 ML IV ONE (15:45)
[2025-06-28] MEDS ORDERED: MORPHINE SULFATE INJ 2 MG/ml SYRG IV PRN (15:45)
--- NOTE | 2025-06-28 15:56 | DVHHP2 ---
History of Present Illness Reason for Visit: Abdominal pain History of Present Illness Paris Perez is a 65-year-old female with past medical history of hypertension, rheumatoid arthritis, and vertigo, who came to the hospital with complaints of abdominal pain. Patient states her abdominal pain began last night about 2200, with associated nausea, vomiting, and diarrhea. Her symptoms did not improve over night prompting her to come to the hospital. 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 Rheumatologic: Rheumatoid arthritis Past Surgical History: Appendectomy, Cholecystectomy, (x 3), Tubal Ligation, Tonsillectomy Smoke: No ALCOHOL: none Drugs: None Lives: with Family Domestic Violence: Neg Review of Systems Constitutional: No: Fever, Chills, Sweats, Weakness, Malaise, Other Eyes: No: Pain, Vision change, Conjunctivae inflammation, Eyelid inflammation, Other, Redness ENT: No: Ear pain, Ear discharge, Nose pain, Nose discharge, Nose congestion, Mouth pain, Mouth swelling, Throat pain, Throat swelling, Other Respiratory: No: Cough, Dry, Shortness of breath, SOB with excertion, Wheezing, Hemoptysis, Pleuritic Pain, Sputum, Wheezing, Other Cardiovascular: No: Chest Pain, Palpitations, Orthopnea, Paroxysmal Noc. Dyspnea, Edema, Lt Headedness, Other Gastrointestinal: Nausea, Vomiting, Abdominal Pain, Diarrhea; No: Constipation, Melena, Hematochezia, Other Genitourinary: No Dysuria, No Frequency, No Incontinence, No Hematuria, No Retention, No Other Musculoskeletal: No: other, neck pain, shoulder pain, arm pain, back pain, hand pain, leg pain, foot pain Skin: No: Rash, Lesions, Jaundice, Bruising, Other Neurological: No: Weakness, Numbness, Incoordination, Change in speech, Confusion, Seizures, Other Allergies: Coded Allergies: Amoxicillin (Verified Allergy, Unknown, 06/27/19) Codeine (Verified Allergy, Unknown, 08/08/15) Penicillins (Verified Allergy, Unknown, 11/10/16) Exam Vital Signs Vital Signs Date Time Temp Pulse Resp B/P (MAP) Pulse Ox O2 Delivery O2 Flow Rate FiO2 06/28/25 14:13 74 18 136/74 06/28/25 11:38 98.0 98 98.0 General Appearance: Alert, Oriented X3, Cooperative, moderate distress HEENT: Atraumatic, PERRLA, Other (Mucous Membr dry) Respiratory: Clear to auscultation Cardiovascular: Regular rate, Normal S1, Normal S2, No murmurs Abdominal: Normal bowel sounds, Other (Diffuse abdominal pain across entire upper abdomen, with nausea and diarrhea) Extremities: No clubbing, No cyanosis, No edema, Normal pulses, No tenderness/swelling Skin: No rashes, No breakdown, No significant lesion Neuro: Normal gait, Normal speech, Strength at 5/5 X4 ext Psych/Mental Status: Mental status NL, Mood NL Labs/Xrays Labs Test 06/28/25 09:37 Range/Units White Blood Count 13.2 H 4.4-10.8 10^3/uL Red Blood Count 4.15 4.0-5.20 10^6/uL Hemoglobin 13.8 12.2-16.2 g/dL Hematocrit 40.5 36.0-46.0 % Mean Corpuscular Volume 97.5 80.0-100.0 fL Mean Corpuscular Hemoglobin 33.2 H 28.0-32.0 pg Mean Corpuscular Hemoglobin Concent 34.1 32.0-36.0 g/dL Red Cell Distribution Width 13.2 11.8-14.3 % Platelet Count 293 140-450 10^3/uL Mean Platelet Volume 8.1 6.9-10.8 fL Neutrophils (%) (Auto) 76.7 37.0-80.0 % Lymphocytes (%) (Auto) 18.4 10.0-50.0 % Monocytes (%) (Auto) 4.2 0.0-12.0 % Eosinophils (%) (Auto) 0.6 0.0-7.0 % Basophils (%) (Auto) 0.1 0.0-2.0 % Neutrophils # (Auto) 10.1 H 1.6-8.6 10 ^3/uL Lymphocytes # (Auto) 2.4 0.4-5.4 10 ^3/uL Monocytes # (Auto) 0.5 0-1.3 10 ^3/uL Eosinophils # (Auto) 0.1 0-0.8 10 ^3/uL Basophils # (Auto) 0 0-0.2 10 ^3/uL Nucleated Red Blood Cells 0.0 % Sodium Level 140 136-145 mmol/L Potassium Level 4.0 3.5-5.1 mmol/L Chloride Level 106 98-107 mmol/L Carbon Dioxide Level 22 20-31 mmol/L Anion Gap 12 5-15 Blood Urea Nitrogen 25 H 9-23 mg/dL Creatinine 1.19 H 0.550-1.02 mg/dL Glomerular Filtration Rate Calc 50 >90 mL/min BUN/Creatinine Ratio 21.0 H 10.0-20.0 Serum Glucose 113 H 74-106 mg/dL Calcium Level 9.6 8.7-10.4 mg/dL Beta HCG, Quantitative 4.6 H 1.5-4.2 mIU/mL Exam: CT CT AB PEL WITH IV CON ONLY Findings: Lung Bases: No acute or significant lung base finding. Normal heart size. No pleural or pericardial effusion. Liver: Diffuse hepatic steatosis. Gallbladder and biliary Tree: Gallbladder is surgically absent. Spleen: Unremarkable Pancreas: The pancreas is normal in appearance without focal lesions or abnormal enhancement. Adrenal Glands: Unremarkable Kidneys: Bilateral renal calculi measuring up to 3 mm. No hydronephrosis. Bladder: Unremarkable Bowel: The stomach is grossly normal in appearance. Small bowel and colon are normal in caliber and distribution. The appendix is not visualized; however, no secondary findings of acute appendicitis identified. Mild diffuse wall thickening of the colon which is underdistended. Ascites: Absent Lymphadenopathy: No mesenteric, retroperitoneal or periportal lymphadenopathy. Abdominal wall and Mesentery: Injection granulomas in the bilateral gluteal regions. Vasculature: The visualized abdominal aorta is normal in size and caliber. Abdominal and pelvic vessels demonstrate normal enhancement. Splenic artery aneurysm measuring up to 15 mm. Pelvic Organs: The uterus is surgically absent. Musculoskeletal: No aggressive focal bony lesions, acute fractures or dislocation. IMPRESSION: 1. No acute abdominal or pelvic finding. Diffuse hepatic steatosis. Bilateral nonobstructive renal calculi. Mild diffuse wall thickening of the colon which is underdistended. Colitis is not excluded. Clinical correlation and continued follow-up is recommended. Splenic artery aneurysm measuring up to 15 mm. This ca n be further evaluated with CTA of the abdomen. SEPSIS Sepsis Screen Date sepsis recognized/suspect: Jun 28, 2025 Time Sepsis recognized/suspect: 0858 Recent Procedure: No On Antibiotic Therapy: No Respiratory Rate >20: No Heart Rate >90: No Temp<36 C (96.8 F) or >38.3 C: No SBP <90 or MAP <65 mmHG: No New Acute Mental Status Change: No Is the patient on CPAP, BIPAP,: No Physician Orders Electrocardigram (06/28/25 08:52) Urinalysis (06/28/25 09:21) Ct Ab Pel With Iv Con Only (06/28/25 09:21) Metronidazole 500mg/100ml (Flagyl 500mg/ (06/28/25 14:45) Admit (06/28/25 15:36) Code Status (06/28/25 15:36) Sodium Chloride 0.9% (06/28/25 15:45) Hydrocodone-Acet 5/325mg Tab ([place] 5/32 (06/28/25 15:45) Ondansetron Hcl (Zofran) (06/28/25 15:45) Docusate Sodium Capsule (Colace Capsule) (06/28/25 15:45) Complete Blood Count (06/29/25 04:00) Comprehensive Metabolic Panel (06/29/25 04:00) Condition: Serious (06/28/25 15:36) Acetaminophen Tablet (Tylenol Tablet) (06/28/25 15:45) Clear Liq Diet (06/28/25 Dinner) Morphine Sulfate Injection (06/28/25 15:45) Lisinopril Tablet (Zestril Tablet) (06/28/25 22:00) Sulfasalazine (Azulfidine) (06/28/25 22:00) (Nf) Folic Acid (06/29/25 10:00) (Nf) Omeprazole (Omeprazole Dr) (06/28/25 22:00) Vital Signs Date Time Temp Pulse Resp B/P (MAP) Pulse Ox O2 Delivery O2 Flow Rate FiO2 06/28/25 14:13 74 18 136/74 06/28/25 11:44 90 18 148/78 06/28/25 11:38 98.0 90 16 148/78 (101) 98 98.0 06/28/25 10:27 86 14 157/83 (107) 98 06/28/25 08:55 98.1 81 17 142/85 96 98.1 06/28/25 08:49 85 Laboratory Tests Test 06/28/25 09:37 White Blood Count 13.2 10^3/uL (4.4-10.8) H Medications Medications Dose Ordered Sig/Jordy Route Start Time Stop Time Status Last Admin Dose Admin Metronidazole 100 ml @ 100 mls/hr ONCE ONCE IV 06/28/25 14:45 06/28/25 15:44 06/28/25 14:58 100 MLS/HR Morphine Sulfate 4 mg ONCE ONCE IV 06/28/25 09:30 06/28/25 09:31 DC 06/28/25 11:44 4 MG Ondansetron HCl 4 mg ONCE ONCE IV 06/28/25 09:30 06/28/25 09:31 DC 06/28/25 11:44 4 MG Sodium Chloride 1,000 ml @ 1,000 mls/hr Q1H ONCE IV 06/28/25 09:30 06/28/25 10:29 DC 06/28/25 11:44 1,000 MLS/HR Assessment/Plan Assessment/Plan Assessment: Acute gastritis, Leukocytosis, Rheumatoid arthritis, Hypertension, Vertigo, Plan: Admit to Med-Surg, IV antibiotics, IV hydration, Antiemetics, Clear liquid diet, Manage/Monitor electrolytes closely, Home medications reconciled, Plan discussed with: Patient My Orders Orders - CHIO BISHOP Procedure Category Date Status Time Admit ADMIT 06/28/25 Transmitted 15:36 Code Status CODE 06/28/25 Transmitted 15:36 Sodium Chloride 0.9% PHA 06/28/25 Logged 15:45 Hydrocodone-Acet PHA 06/28/25 Logged 5/325mg Tab ([place] 15:45 Ondansetron Hcl PHA 06/28/25 Logged (Zofran) 15:45 Docusate Sodium PHA 06/28/25 Logged Capsule (Colace 15:45 Complete Blood Count LAB 06/29/25 Verified 04:00 Comprehensive LAB 06/29/25 Verified Metabolic Panel 04:00 Condition: Serious OLGA LIDIA 06/28/25 In Process 15:36 Acetaminophen Tablet PHA 06/28/25 Logged (Tylenol Tablet) 15:45 Clear Liq Diet DIET 06/28/25 Transmitted Dinner Morphine Sulfate PHA 06/28/25 Logged Injection 15:45 Lisinopril Tablet PHA 06/28/25 Transmitted (Zestril Tablet) 22:00 Sulfasalazine PHA 06/28/25 Transmitted (Azulfidine) 22:00 (Nf) Folic Acid PHA 06/29/25 Transmitted 10:00 (Nf) Omeprazole PHA 06/28/25 Transmitted (Omeprazole ) 22:00 Date of Service: Jun 28, 2025 Billing Provider: CHIO BISHOP Common Visit Codes: [id number] INP/OBS CARE (MOD) CHIO BISHOP Jun 28, 2025 15:56
[2025-06-28] MEDS: SODIUM CHLORIDE 0.9% 1,000 ML IV SCH (19:21)
[2025-06-28] MEDS: LISINOPRIL 20 MG TAB PO SCH (22:15)
[2025-06-29] VITALS (10 sets, daily range): BP systolic 109–155; BP diastolic 57–85; PULSE 89–109; RESP 18–22; TEMP 97.5–103; O2SAT 96–98
[2025-06-29] MEDS: ACETAMINOPHEN 325 MG TAB PO PRN (07:49)
[2025-06-29] MEDS ORDERED: cefTRIAXone 1GM/50ML D5W 50 ML IV SCH (09:00)
[2025-06-29] MEDS: FOLIC ACID 1 MG TAB PO SCH (09:36)
[2025-06-29] MEDS: PANTOPRAZOLE 40 MG TAB PO SCH (09:37)
[2025-06-29 09:51] LABS: Hematocrit 38.3 % (36.0-46.0); Hemoglobin 13.2 g/dL (12.2-16.2); Mean Corpuscular Hemoglobin 33.8 pg (28.0-32.0); Mean Corpuscular Volume 98.0 fL (80.0-100.0); Nucleated Red Blood Cells % 0.1 %
[2025-06-29 10:03] LABS: Chloride 105 mmol/L (98-107); Sodium 136 mmol/L (136-145)
[2025-06-29 10:09] LABS: Potassium 3.2 mmol/L (3.5-5.1)
[2025-06-29 10:27] LABS: Anion Gap 13 (5-15)
[2025-06-29 10:28] LABS: Calcium 9.0 mg/dL (8.7-10.4)
[2025-06-29 10:29] LABS: Carbon Dioxide 18 mmol/L (20-31)
[2025-06-29 10:31] LABS: Alkaline Phosphatase 63 U/L (46-116)
[2025-06-29 10:32] LABS: Glucose 97 mg/dL (74-106)
[2025-06-29 10:33] LABS: BUN/Creatinine Ratio 10.4 (10.0-20.0); Blood Urea Nitrogen 13 mg/dL (9-23); Total Protein 6.6 g/dL (5.7-8.2)
[2025-06-29 10:34] LABS: Albumin 4.4 g/dL (3.2-4.8)
[2025-06-29 10:35] LABS: Bilirubin, Total 0.5 mg/dL (0.2-1.0)
[2025-06-29 10:44] LABS: Alanine Aminotransferase 138 U/L (7-40)
[2025-06-29] MEDS: METOCLOPRAMIDE HCL 5MG/ml INJ 2ml VIAL IV PRN (13:39)
--- NOTE | 2025-06-29 17:02 | DVHPN2 ---
Subjective I am assuming the care of the patient from today onwards. Patient was admitted for abdominal pain patient also complaining of nausea and vomiting abdominal pain and diarrhea. Patient has stated stools are watery, we will check stool for C diff. Changes from previous H/P or p: No Changes Eyes: No Pain, No Vision change, No Conjunctivae inflammation, No Eyelid inflammation, No Other, No Redness ENT: No Ear pain, No Ear discharge, No Nose pain, No Nose discharge, No Nose congestion, No Mouth pain, No Mouth swelling, No Throat pain, No Throat swelling, No Other Cardiovascular: No Chest Pain, No Palpitations, No Orthopnea, No Paroxysmal Noc. Dyspnea, No Edema, No Lt Headedness, No Other Respiratory: No Cough, No Dry, No Shortness of breath, No SOB with excertion, No Wheezing, No Hemoptysis, No Pleuritic Pain, No Sputum, No Other Gastrointestinal: Nausea, Vomiting, Abdominal Pain, Diarrhea; No Constipation, No Melena, No Hematochezia, No Other Genitourinary: No Dysuria, No Frequency, No Incontinence, No Hematuria, No Retention, No Other Musculoskeletal: No other, No neck pain, No shoulder pain, No arm pain, No back pain, No hand pain, No leg pain, No foot pain Skin: No Rash, No Lesions, No Jaundice, No Bruising, No Other Objective Vitals Vital Signs Date Time Temp Pulse Resp B/P (MAP) Pulse Ox O2 Delivery O2 Flow Rate FiO2 06/29/25 16:48 100.2 94 20 109/57 (74) 97 100.2 06/29/25 08:00 Room Air* 0 21 Intake/Output Intake and Output 06/29/25 06:59 Intake Total 1400 ml Balance 1400 ml Intake Oral 0 ml IV Total 1400 ml Exam HEENT pupils are reactive Neck is supple CV is S1-S2 regular rate and rhythm Respiratory diminished breath sounds bases GI positive bowel sound 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 Medications Current Medications Medications Dose Ordered Sig/Jordy Route Start Time Stop Time Status Last Admin Dose Admin Sodium Chloride 1,000 ml @ 75 mls/hr [id number] IV 06/28/25 15:45 06/29/25 05:32 75 MLS/HR Acetaminophen/ Hydrocodone Bitart 1 tab Q4HP PRN PO 06/28/25 15:45 Hold Ondansetron HCl 4 mg Q4HP PRN IV 06/28/25 15:45 Docusate Sodium 100 mg BIDPRN PRN PO 06/28/25 15:45 Acetaminophen 650 mg Q6HP PRN PO 06/28/25 15:45 06/29/25 13:40 650 MG Lisinopril 20 mg BID PO 06/28/25 22:00 06/29/25 09:37 20 MG Sulfasalazine 500 mg BID PO 06/28/25 22:00 06/29/25 09:36 500 MG Folic Acid 1 mg DAILY PO 06/29/25 10:00 06/29/25 09:36 1 MG Pantoprazole Sodium 40 mg DAILY PO 06/29/25 10:00 06/29/25 09:37 40 MG Metronidazole 100 ml @ 100 mls/hr Q8HR IV 06/28/25 22:00 06/29/25 13:40 100 MLS/HR Metoclopramide HCl 10 mg Q8HPRN PRN IV 06/28/25 15:45 06/29/25 13:39 10 MG Levofloxacin/ Dextrose 100 ml @ 100 mls/hr DAILY IV 06/29/25 10:00 06/29/25 09:36 100 MLS/HR Laboratory Results Laboratory Tests 06/29/25 09:21 06/29/25 09:28 Chemistry Test 06/29/25 09:21 Albumin 4.4 g/dL (3.2-4.8) Calcium Level 9.0 mg/dL (8.7-10.4) Total Protein 6.6 g/dL (5.7-8.2) LFT Test 06/29/25 09:21 Alanine Aminotransferase (ALT) 138 U/L (7-40) H Alkaline Phosphatase 63 U/L (46-116) Aspartate Amino Transferase (AST) 97 U/L (13-40) H Total Bilirubin 0.5 mg/dL (0.2-1.0) Assessment/Plan Assessment/Plan 65-year-old female with a known history of hypertension, rheumatoid arthritis initially presented to the hospital with the abdominal pain nausea and vomiting diarrhea found to have 1. Diarrhea rule out C diff 2. Abdominal pain with the nausea and vomiting suspect colitis 3. Hypertension 4. Vertigo 5. Hypertension 6. Morbid obesity classI -check stool for C diff, empirical IV antibiotics, GI consultation. Plan discussed with: Patient My Orders Orders - PEDRO THOMPSON MD Procedure Category Date Status Time Full Liq Diet DIET 06/29/25 Transmitted Dinner Clostridium Difficile FIONA 06/29/25 Logged Toxin 13:30 Date of Service: Jun 29, 2025 Billing Provider: PEDRO THOMPSON MD Common Visit Codes: [id number] INP/OBS CARE(MOD) PEDRO THOMPSON MD Jun 29, 2025 17:02
[2025-06-29] MEDS: POTASSIUM CHL 20 Meq TABLET PO ONE (17:19)
[2025-06-29] MEDS: KETOROLAC TROMETH 30 MG/ML 1ML VIAL IV ONE (21:17)
--- NOTE | 2025-06-29 22:25 | DVHINCON2 ---
Date of service: Jun 29, 2025 Referring Physician Jesica Yin Reason for Consultation Abd pain and diarrhoea, N/V History of Present Illness Paris Perez is a 65-year-old female with past medical history of hypertension, rheumatoid arthritis, and vertigo, who came to the hospital with complaints of abdominal pain. Patient states her abdominal pain began last night about 2200, with associated nausea, bilious vomiting, and watery diarrhea. Her symptoms did not improve over night prompting her to come to the hospital. Last EGD by Dr. 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 Rheumatologic: Rheumatoid arthritis Past Surgical History Past Surgical History: Appendectomy, Cholecystectomy, (x 3), Tubal Ligation, Tonsillectomy Family History: FHx: hypertension G8 BROTHER Unknown Allergies: Coded Allergies: Amoxicillin (Verified Allergy, Unknown, 06/27/19) Codeine (Verified Allergy, Unknown, 08/08/15) Penicillins (Verified Allergy, Unknown, 11/10/16) Home Meds Reported Medications Upadacitinib (Rinvoq) 15 Mg Tab, 1 TAB PO DAILY 06/28/25 Sulfasalazine (Azulfidine) 500 Mg Tb, 1 TAB PO BID 06/28/25 Lisinopril (Lisinopril) 20 Mg Tab, 1 TAB PO BID 06/28/25 Atorvastatin Calcium (Lipitor) 10 Mg Tab, 10 MG PO HS 06/28/25 Diclofenac Sodium (Topical) (Diclofenac Sodium) 1 % Gel, 1 APPLIC TD HS, GEL 08/10/20 Multiple Vitamins W/ Minerals (Centrum Silver 50+Women) 1 Tab Tab, 1 TAB PO DAILY, TAB 08/10/20 Hydrocodone-Acetaminophen ([place]oppel 7.5-325 mg) 1 Tab Tab, 1 TAB PO HS, TAB 08/10/20 Folic Acid (Folic Acid) 1 Mg Tab, 1 MG PO DAILY, MG 08/10/20 Potassium Chloride (Potassium Chloride ER) 20 Meq Tab, 20 MEQ PO HS, TAB 08/10/20 Omeprazole (Omeprazole Dr) 20 Mg Cap, 20 MG PO BID, CAP 08/10/20 Discontinued Reported Medications Methotrexate (Methotrexate) 2.5 Mg Tab, 8 TAB PO QWEEKLY, MG 8 TABS PO Q Thursday08/10/20 Atorvastatin Calcium (ATORVASTATIN CALCIUM) 20 Mg Tab, 1 TAB PO HS, #30 TAB 5 Refills 08/10/20 Lisinopril (Lisinopril) 10 Mg Tab, 10 MG PO DAILY, TAB 08/10/20 Current Medications Current Medications Medications (Trade) Dose Ordered Sig/Jordy Route PRN Reason Start Time Stop Time Status Last Admin Folic Acid 1 mg DAILY PO 06/29/25 10:00 06/29/25 09:36 Pantoprazole Sodium (Protonix Tablet) 40 mg DAILY PO 06/29/25 10:00 06/29/25 09:37 Ceftriaxone Sodium 50 ml @ 100 mls/hr DAILY@09 IV 06/29/25 09:00 06/28/25 16:11 DC Levofloxacin/ Dextrose 100 ml @ 100 mls/hr DAILY IV 06/29/25 10:00 06/29/25 09:36 Vital Signs Vital Signs Date Time Temp Pulse Resp B/P (MAP) Pulse Ox O2 Delivery O2 Flow Rate FiO2 06/29/25 21:09 153/77 06/29/25 20:18 100 22 97 Room Air* 0 21 06/29/25 16:48 100.2 100.2 Physical Exam HEENT pupils are reactive Neck is supple CV is S1-S2 regular rate and rhythm Respiratory diminished breath sounds bases GI positive bowel sound Extremity no edema 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 Labs/Diagnostic Data Labs Test 06/29/25 09:28 06/29/25 09:21 06/28/25 09:37 Range/Units White Blood Count 8.0 # 4.4-10.8 10^3/uL Red Blood Count 3.91 L 4.0-5.20 10^6/uL Hemoglobin 13.2 12.2-16.2 g/dL Hematocrit 38.3 36.0-46.0 % Mean Corpuscular Volume 98.0 80.0-100.0 fL Mean Corpuscular Hemoglobin 33.8 H 28.0-32.0 pg Mean Corpuscular Hemoglobin Concent 34.5 32.0-36.0 g/dL Red Cell Distribution Width 13.1 11.8-14.3 % Platelet Count 238 140-450 10^3/uL Mean Platelet Volume 8.0 6.9-10.8 fL Neutrophils (%) (Auto) 66.0 37.0-80.0 % Lymphocytes (%) (Auto) 19.3 10.0-50.0 % Monocytes (%) (Auto) 14.1 H 0.0-12.0 % Eosinophils (%) (Auto) 0.3 0.0-7.0 % Basophils (%) (Auto) 0.3 0.0-2.0 % Neutrophils # (Auto) 5.3 1.6-8.6 10 ^3/uL Lymphocytes # (Auto) 1.5 0.4-5.4 10 ^3/uL Monocytes # (Auto) 1.1 0-1.3 10 ^3/uL Eosinophils # (Auto) 0 0-0.8 10 ^3/uL Basophils # (Auto) 0 0-0.2 10 ^3/uL Nucleated Red Blood Cells 0.1 % Sodium Level 136 136-145 mmol/L Potassium Level 3.2 L 3.5-5.1 mmol/L Chloride Level 105 98-107 mmol/L Carbon Dioxide Level 18 L 20-31 mmol/L Anion Gap 13 5-15 Blood Urea Nitrogen 13 # 9-23 mg/dL Creatinine 1.25 H 0.550-1.02 mg/dL Glomerular Filtration Rate Calc 48 >90 mL/min BUN/Creatinine Ratio 10.4 10.0-20.0 Serum Glucose 97 74-106 mg/dL Calcium Level 9.0 8.7-10.4 mg/dL Total Bilirubin 0.5 0.2-1.0 mg/dL Aspartate Amino Transferase (AST) 97 H 13-40 U/L Alanine Aminotransferase (ALT) 138 H 7-40 U/L Alkaline Phosphatase 63 46-116 U/L Total Protein 6.6 5.7-8.2 g/dL Albumin 4.4 3.2-4.8 g/dL Beta HCG, Quantitative 4.6 H 1.5-4.2 mIU/mL CT SCAN ABD PELVIS IMPRESSION: 1. No acute abdominal or pelvic finding. Diffuse hepatic steatosis. Bilateral nonobstructive renal calculi. Mild diffuse wall thickening of the colon which is underdistended. Colitis is not excluded. Clinical correlation and continued follow-up is recommended. Splenic artery aneurysm measuring up to 15 mm. This can be further evaluated with CTA of the abdomen. Problems(with codes): (1) Intractable abdominal pain (2) Intractable nausea and vomiting (3) Acute diarrhea (4) Gastroenteritis (5) Elevated liver enzymes (6) Leukocytosis (7) Acute renal insufficiency Plan/Recommendation Plan IV fluid hydration, IV antibiotics IV PPI ;zofran prn Lomotil or questran Clear liquid diet pt advanced to full liquid diet Stool tests including stool for WBC occult blood Supportive care If diarrhea persists we can try Lomotil or Questran Plan discussed with: Other (None) GHAZALA SWANN MD Jun 29, 2025 22:25
[2025-06-30] VITALS (8 sets, daily range): BP systolic 105–135; BP diastolic 52–79; PULSE 66–86; RESP 17–20; TEMP 98–99.4; O2SAT 17–98
[2025-06-30 09:00] LABS: Alkaline Phosphatase 54 U/L (46-116); Anion Gap 12 (5-15); Calcium 8.8 mg/dL (8.7-10.4); Glucose 98 mg/dL (74-106); Potassium 4.3 mmol/L (3.5-5.1); Sodium 138 mmol/L (136-145)
[2025-06-30 09:01] LABS: Albumin 3.9 g/dL (3.2-4.8); BUN/Creatinine Ratio 13.6 (10.0-20.0); Blood Urea Nitrogen 19 mg/dL (9-23)
[2025-06-30 09:03] LABS: Alanine Aminotransferase 117 U/L (7-40); Bilirubin, Total 0.3 mg/dL (0.2-1.0); Carbon Dioxide 17 mmol/L (20-31); Chloride 109 mmol/L (98-107); Total Protein 5.7 g/dL (5.7-8.2)
[2025-06-30] MEDS: HYDROcodone-ACET 10/325MG TAB PO PRN (10:53)
--- NOTE | 2025-06-30 11:50 | ECG ---
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
--- NOTE | 2025-06-30 16:20 | DVHPN2 ---
Subjective Patient was admitted for abdominal pain patient also complaining of nausea and vomiting abdominal pain and diarrhea. Patient has stated stools are watery, we will check stool for C diff. Changes from previous H/P or p: No Changes Eyes: No Pain, No Vision change, No Conjunctivae inflammation, No Eyelid inflammation, No Other, No Redness ENT: No Ear pain, No Ear discharge, No Nose pain, No Nose discharge, No Nose congestion, No Mouth pain, No Mouth swelling, No Throat pain, No Throat swelling, No Other Cardiovascular: No Chest Pain, No Palpitations, No Orthopnea, No Paroxysmal Noc. Dyspnea, No Edema, No Lt Headedness, No Other Respiratory: No Cough, No Dry, No Shortness of breath, No SOB with excertion, No Wheezing, No Hemoptysis, No Pleuritic Pain, No Sputum, No Other Gastrointestinal: Nausea, Vomiting, Abdominal Pain, Diarrhea; No Constipation, No Melena, No Hematochezia, No Other Genitourinary: No Dysuria, No Frequency, No Incontinence, No Hematuria, No Retention, No Other Musculoskeletal: No other, No neck pain, No shoulder pain, No arm pain, No back pain, No hand pain, No leg pain, No foot pain Skin: No Rash, No Lesions, No Jaundice, No Bruising, No Other Objective Vitals Vital Signs Date Time Temp Pulse Resp B/P (MAP) Pulse Ox O2 Delivery O2 Flow Rate FiO2 06/30/25 13:30 98.3 80 110/52 (71) 17 98.3 06/30/25 08:57 17 06/30/25 08:00 Room Air* 0 21 Intake/Output Intake and Output 06/30/25 07:00 Intake Total 1895 ml Output Total 3 ml Balance 1892 ml Intake Oral 1495 ml IV Total 400 ml Output Stool Total 3 ml # Voids 10 # Bowel Movements 1 Exam HEENT pupils are reactive Neck is supple CV is S1-S2 regular rate and rhythm Respiratory diminished breath sounds bases GI positive bowel sound 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 Medications Current Medications Medications Dose Ordered Sig/Jordy Route Start Time Stop Time Status Last Admin Dose Admin Sodium Chloride 1,000 ml @ 75 mls/hr [id number] IV 06/28/25 15:45 06/30/25 09:34 75 MLS/HR Ondansetron HCl 4 mg Q4HP PRN IV 06/28/25 15:45 Docusate Sodium 100 mg BIDPRN PRN PO 06/28/25 15:45 Acetaminophen 650 mg Q6HP PRN PO 06/28/25 15:45 06/30/25 09:35 650 MG Lisinopril 20 mg BID PO 06/28/25 22:00 06/29/25 21:09 20 MG Sulfasalazine 500 mg BID PO 06/28/25 22:00 06/30/25 09:35 500 MG Folic Acid 1 mg DAILY PO 06/29/25 10:00 06/30/25 09:35 1 MG Pantoprazole Sodium 40 mg DAILY PO 06/29/25 10:00 06/30/25 09:35 40 MG Metronidazole 100 ml @ 100 mls/hr Q8HR IV 06/28/25 22:00 06/30/25 14:12 100 MLS/HR Metoclopramide HCl 10 mg Q8HPRN PRN IV 06/28/25 15:45 06/30/25 09:38 10 MG Levofloxacin/ Dextrose 100 ml @ 100 mls/hr DAILY IV 06/29/25 10:00 06/30/25 09:46 100 MLS/HR Acetaminophen/ Hydrocodone Bitart 1 tab Q4HP PRN PO 06/30/25 10:30 06/30/25 10:53 1 TAB Laboratory Results Laboratory Tests 06/29/25 09:28 06/30/25 06:02 Chemistry Test 06/30/25 06:02 Albumin 3.9 g/dL (3.2-4.8) Calcium Level 8.8 mg/dL (8.7-10.4) Total Protein 5.7 g/dL (5.7-8.2) LFT Test 06/30/25 06:02 Alanine Aminotransferase (ALT) 117 U/L (7-40) H Alkaline Phosphatase 54 U/L (46-116) Aspartate Amino Transferase (AST) 91 U/L (13-40) H Total Bilirubin 0.3 mg/dL (0.2-1.0) Microbiology Microbiology Date/Time Source Procedure Growth Status 06/30/25 03:00 Stool Stool Culture - Preliminary Resulted 06/30/25 03:00 Stool Shiga Toxin I & II - Final Resulted Assessment/Plan Assessment/Plan 65-year-old female with a known history of hypertension, rheumatoid arthritis initially presented to the hospital with the abdominal pain nausea and vomiting diarrhea found to have 1. Diarrhea rule out C diff 2. Abdominal pain with the nausea and vomiting suspect colitis 3. Hypertension 4. Vertigo 5. Hypertension 6. Morbid obesity classI -check stool for C diff, empirical IV antibiotics, GI consultation. Plan discussed with: Patient My Orders Orders - PEDRO THOMPSON MD Procedure Category Date Status Time * Gi Dvh Card Brusher CONS 06/29/25 Transmitted 17:00 Hydrocodone-Acet PHA 06/30/25 In Process 10/325mg Tab (Oil Trough 10:30 2 Gm Sodium Diet DIET 06/30/25 Transmitted Lunch Date of Service: Jun 30, 2025 Billing Provider: PEDRO THOMPSON MD Common Visit Codes: [id number] INP/OBS CARE(MOD) PEDRO THOMPSON MD Jun 30, 2025 16:20
--- NOTE | 2025-06-30 21:32 | DVHPN2 ---
Progress Note - Dictate Date Seen: Jun 30, 2025 Medical Necessity Reason Pt with a Central, PICC or Fol: No Subjective Patient continues to have some loose stools Five bowel movements recorded yesterday Stool for C diff was negative Stool for bacterial culture is negative Stool for occult blood is negative and stool for WBC is also negative pointing against inflammatory colitis vital signs Vital Sign Date Time Temp Pulse Resp B/P (MAP) Pulse Ox O2 Delivery O2 Flow Rate FiO2 06/30/25 21:00 99.4 86 17 135/61 (85) 98 99.4 06/30/25 08:00 Room Air* 0 21 Total Intake and Output 06/29/25 06/29/25 06/30/25 15:00 23:00 07:00 Intake Total 500 ml 580 ml 815 ml Output Total 3 ml Balance 500 ml 577 ml 815 ml medications Current Medications Medications Dose Ordered Sig/Jordy Route Start Time Stop Time Status Last Admin Dose Admin Sodium Chloride 1,000 ml @ 75 mls/hr [id number] IV 06/28/25 15:45 06/30/25 09:34 75 MLS/HR Ondansetron HCl 4 mg Q4HP PRN IV 06/28/25 15:45 Docusate Sodium 100 mg BIDPRN PRN PO 06/28/25 15:45 Acetaminophen 650 mg Q6HP PRN PO 06/28/25 15:45 06/30/25 09:35 650 MG Lisinopril 20 mg BID PO 06/28/25 22:00 06/29/25 21:09 20 MG Sulfasalazine 500 mg BID PO 06/28/25 22:00 06/30/25 09:35 500 MG Folic Acid 1 mg DAILY PO 06/29/25 10:00 06/30/25 09:35 1 MG Pantoprazole Sodium 40 mg DAILY PO 06/29/25 10:00 06/30/25 09:35 40 MG Metronidazole 100 ml @ 100 mls/hr Q8HR IV 06/28/25 22:00 06/30/25 14:12 100 MLS/HR Metoclopramide HCl 10 mg Q8HPRN PRN IV 06/28/25 15:45 06/30/25 20:35 10 MG Levofloxacin/ Dextrose 100 ml @ 100 mls/hr DAILY IV 06/29/25 10:00 06/30/25 09:46 100 MLS/HR Acetaminophen/ Hydrocodone Bitart 1 tab Q4HP PRN PO 06/30/25 10:30 06/30/25 20:38 1 TAB objective HEENT pupils are reactive Neck is supple CV is S1-S2 regular rate and rhythm Respiratory diminished breath sounds bases GI positive bowel sound Extremity no edema 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
[2025-06-30] MEDS ORDERED: DIPHENOXYLATE W/ATROPINE 2.5 MG TAB PO PRN (21:45)
[2025-07-01 05:00] VITALS: BP 114/72; PULSE 71; RESP 18; TEMP 98.6; O2SAT 96
[2025-07-01 08:00] VITALS: PULSE 71; RESP 17; O2SAT 95
[2025-07-01 08:46] VITALS: BP 135/54; PULSE 80; RESP 20; TEMP 98.6; O2SAT 95
[2025-07-01] MEDS: ONDANSETRON HCL 4 MG/2 ML VIAL IV PRN (09:35)
[2025-07-01 12:40] VITALS: BP 110/61; PULSE 70; RESP 20; TEMP 98.6; O2SAT 97
[2025-07-01] MEDS ORDERED: LEVO500T91 PO (16:29)
[2025-07-01] MEDS ORDERED: METR-344 PO (16:29)
--- NOTE | 2025-07-01 16:31 | DVHDS2 ---
Discharge Summary Date of Admission Jun 28, 2025 at 15:36 Date of Discharge: Jul 01, 2025 Labs/Diagnostic Data: Laboratory Results Test 06/30/25 06:02 06/30/25 03:00 06/29/25 09:28 06/28/25 09:37 Sodium Level 138 mmol/L (136-145) Potassium Level 4.3 mmol/L (3.5-5.1) Chloride Level 109 mmol/L (98-107) Carbon Dioxide Level 17 mmol/L (20-31) Anion Gap 12 (5-15) Blood Urea Nitrogen 19 mg/dL (9-23) Creatinine 1.40 mg/dL (0.550-1.02) Glomerular Filtration Rate Calc 41 mL/min (>90) BUN/Creatinine Ratio 13.6 (10.0-20.0) Serum Glucose 98 mg/dL (74-106) Lactic Acid Level 0.8 mmol/L (0.4-2.0) Calcium Level 8.8 mg/dL (8.7-10.4) Total Bilirubin 0.3 mg/dL (0.2-1.0) Aspartate Amino Transferase (AST) 91 U/L (13-40) Alanine Aminotransferase (ALT) 117 U/L (7-40) Alkaline Phosphatase 54 U/L (46-116) C-Reactive Protein High Sensitivity 6.57 mg/dL (<1.0) Total Protein 5.7 g/dL (5.7-8.2) Albumin 3.9 g/dL (3.2-4.8) Stool Occult Blood Negative (Negative) Stool Occult Blood Sample #3 (Negative) Stool for White Cells None seen White Blood Count 8.0 10^3/uL (4.4-10.8) Red Blood Count 3.91 10^6/uL (4.0-5.20) Hemoglobin 13.2 g/dL (12.2-16.2) Hematocrit 38.3 % (36.0-46.0) Mean Corpuscular Volume 98.0 fL (80.0-100.0) Mean Corpuscular Hemoglobin 33.8 pg (28.0-32.0) Mean Corpuscular Hemoglobin Concent 34.5 g/dL (32.0-36.0) Red Cell Distribution Width 13.1 % (11.8-14.3) Platelet Count 238 10^3/uL (140-450) Mean Platelet Volume 8.0 fL (6.9-10.8) Neutrophils (%) (Auto) 66.0 % (37.0-80.0) Lymphocytes (%) (Auto) 19.3 % (10.0-50.0) Monocytes (%) (Auto) 14.1 % (0.0-12.0) Eosinophils (%) (Auto) 0.3 % (0.0-7.0) Basophils (%) (Auto) 0.3 % (0.0-2.0) Neutrophils # (Auto) 5.3 10 ^3/uL (1.6-8.6) Lymphocytes # (Auto) 1.5 10 ^3/uL (0.4-5.4) Monocytes # (Auto) 1.1 10 ^3/uL (0-1.3) Eosinophils # (Auto) 0 10 ^3/uL (0-0.8) Basophils # (Auto) 0 10 ^3/uL (0-0.2) Nucleated Red Blood Cells 0.1 % Beta HCG, Quantitative 4.6 mIU/mL (1.5-4.2) Other Laboratory Tests 06/30/25 06:02 06/29/25 09:28 Brief Hx & Hospital Course: 65-year-old female with a known history of hypertension, rheumatoid arthritis initially presented to the hospital with the abdominal pain nausea and vomiting diarrhea found to have diarrhea ruled out C diff. Patient was found to have colitis. Also patient had a splenic artery aneurysm incidental finding which can be evaluated with a CT abdomen as an outpatient with the PCP. Patient was given diet weight reduction and exercise counseling as well. GI was evaluating the patient patient is currently tolerating diet and GI cleared the patient to be discharged. Patient is being discharged under stable condition. Condition at Discharge: Stable Final Diagnosis/Problems List 65-year-old female with a known history of hypertension, rheumatoid arthritis initially presented to the hospital with the abdominal pain nausea and vomiting diarrhea found to have 1. Diarrhea ruled out C diff 2. Abdominal pain with the nausea and vomiting suspect colitis 3. Hypertension 4. Vertigo 5. Hypertension 6. Morbid obesity classI Discharge Disposition: Home SNF Discharge Will this Physician continue t: No Discharge Instruct/Medications Diet: Cardiac 2g Na,low cholest Activity: No Restrictions, As Tolerated Follow Up/Referral: Follow up with the PCP in one week Follow up with the GI doctor Kate Marks in 1-2 weeks Medications: Levaquin and Flagyl as prescribed. New Medications: Levofloxacin Hemihydrate (Levaquin 500 Mg) 500 Mg Tab 1 TAB PO DAILY, #7 TAB Metronidazole (Flagyl) 500 Mg Tab 1 TAB PO TID, #21 TAB Continued Medications: Atorvastatin Calcium (Lipitor) 10 Mg Tab 10 MG PO HS Diclofenac Sodium (Topical) (Diclofenac Sodium) 1 % Gel 1 APPLIC TD HS, GEL Folic Acid (Folic Acid) 1 Mg Tab 1 MG PO DAILY, MG Hydrocodone-Acetaminophen ([place] 7.5-325 mg) 1 Tab Tab 1 TAB PO HS, TAB Lisinopril (Lisinopril) 20 Mg Tab 1 TAB PO BID Multiple Vitamins W/ Minerals (Centrum Silver 50+Women) 1 Tab Tab 1 TAB PO DAILY, TAB Omeprazole (Omeprazole Dr) 20 Mg Cap 20 MG PO BID, CAP Potassium Chloride (Potassium Chloride ER) 20 Meq Tab 20 MEQ PO HS, TAB Sulfasalazine (Azulfidine) 500 Mg Tb 1 TAB PO BID Upadacitinib (Rinvoq) 15 Mg Tab 1 TAB PO DAILY Scheduled Atorvastatin Calcium (Lipitor), 10 MG PO HS, (Reported) Diclofenac Sodium (Topical) (Diclofenac Sodium), 1 APPLIC TD HS, (Reported) Folic Acid (Folic Acid), 1 MG PO DAILY, (Reported) Hydrocodone-Acetaminophen ([place] 7.5-325 mg), 1 TAB PO HS, (Reported) Levofloxacin Hemihydrate (Levaquin 500 Mg), 1 TAB PO DAILY Lisinopril (Lisinopril), 1 TAB PO BID, (Reported) Metronidazole (Flagyl), 1 TAB PO TID Multiple Vitamins W/ Minerals (Centrum Silver 50+Women), 1 TAB PO DAILY, (Reported) Omeprazole (Omeprazole Dr), 20 MG PO BID, (Reported) Potassium Chloride (Potassium Chloride ER), 20 MEQ PO HS, (Reported) Sulfasalazine (Azulfidine), 1 TAB PO BID, (Reported) Upadacitinib (Rinvoq), 1 TAB PO DAILY, (Reported) Discontinued Medications Atorvastatin Calcium (Atorvastatin Calcium), 1 TAB PO HS, (Reported) Lisinopril (Lisinopril), 10 MG PO DAILY, (Reported) Methotrexate (Methotrexate), 8 TAB PO QWEEKLY, (Reported) Discharge Statement: "Patient was advised to return to the ER or call 911 if any headaches, dizziness, shortness of breath, chest pain, abdominal pain, bleeding, fevers, or worsening of medical condition. Patient was counseled about treatment plan, medications, possible side effects, patientverbalized understanding. All questions were answered to the best of my ability. This discharge took greater then 30 minutes in planning, reviewing documentation, counseling the patient, and discussing with other team members." ASSESSMENT ASSESSMENT Assessment 65-year-old female with a known history of hypertension, rheumatoid arthritis initially presented to the hospital with the abdominal pain nausea and vomiting diarrhea found to have 1. Diarrhea rule out C diff 2. Abdominal pain with the nausea and vomiting suspect colitis 3. Hypertension 4. Vertigo 5. Hypertension 6. Morbid obesity classI Date of Service: Jul 01, 2025 Billing Provider: PEDRO THOMPSON MD Common Visit Codes: 11127-EDJ/OBS DISCH DAY >30min PEDRO THOMPSON MD Jul 01, 2025 16:31
[2025-07-01 16:47] VITALS: BP 127/64; PULSE 82; RESP 20; TEMP 98.4; O2SAT 95
[2025-07-01 17:09] LABS: Anion Gap 10 (5-15); Carbon Dioxide 20 mmol/L (20-31); Chloride 106 mmol/L (98-107); Potassium 3.9 mmol/L (3.5-5.1)
[2025-07-01 17:15] LABS: BUN/Creatinine Ratio 12.5 (10.0-20.0); Blood Urea Nitrogen 12 mg/dL (9-23); Glucose 98 mg/dL (74-106)
[2025-07-01 17:16] LABS: Calcium 8.5 mg/dL (8.7-10.4); Sodium 136 mmol/L (136-145)
[2025-07-01 17:35] VITALS: BP 135/54; TEMP 36.9
== END 2025-07-01 18:40 | disposition home or self-care (01) | DRG 249 ==
LOC: ER 08:47 → EDBD 08:47 → OVERFLOW 15:36 → WEST WING 06-29 01:40
PROVIDERS: ADMIT Hospitalist; ATTEND Hospitalist
DX: A08.4 Viral intestinal infection, unspecified (principal); N17.0 Acute kidney failure with tubular necrosis; I72.8 Aneurysm of other specified arteries; K76.0 Fatty (change of) liver, not elsewhere classified; K29.00 Acute gastritis without bleeding; E66.01 Morbid (severe) obesity due to excess calories; N18.9 Chronic kidney disease, unspecified; Z68.31 Body mass index [BMI] 31.0-31.9, adult; M06.8A Other specified rheumatoid arthritis, other specified site; I12.9 Hypertensive chronic kidney disease with stage 1 through stage 4 chronic kidney disease, or unspecified chronic kidney disease; Z82.49 Family history of ischemic heart disease and other diseases of the circulatory system; Z88.5 Allergy status to narcotic agent; Z88.0 Allergy status to penicillin
CPT/HCPCS: 36415; 74177; 80048; 80053; 82270; 83605; 84702; 85025; 85048; 86141; 87045; 87427; 87493; 93005; G0378; J1885; J1956; J2405; J3490